=== PATIENT | female | born 1970 | race Caucasian/White ===

== ENCOUNTER 2016-10-12 13:50 | Inpatient (IN) | payer OTHER ==
[~2016-10-12] VITALS: Ht 170.2 cm; Wt 113.6 kg
[~2016-10-12 13:50] MED LIST: ACCUNEB1.25 MG/3 IH; ADVAIR 250/501 DISK IH; ADVAIR 500/501 DISK IH; ALBUTEROL17 GM IH; ALBUTEROL2.5 MG/3 M IH; ALLEGRA ALLERG180 MG PO; ALLERGY10 M1 PO; AMBIEN10 MG PO; AMBIEN5 MG PO; AMITIZA24 MICROGR PO; AMITRIPTYLINE H10 MG PO; AMITRIPTYLINE H25 MG PO; ATROVENT 0.03%30 ML BOTH NARES; ATROVENT 0.06%15 ML BOTH NARES; ATROVENT H200 INHALA IH; AUGMENTIN500 MG PO; AUGMENTIN875 MG PO; AZITHROMYCIN500 M1 PO; Amitiza PO; BEE WITH C1 EACH PO; BENZONATATE100 MG PO; BENZONATATE200 MG PO; BRINTELLIX10 MG PO; BRINTELLIX20 MG PO; BUSPAR7.5 MG PO; CAL-LAC100 MG PO; CALCIUM 500 MG1 EAC1 PO; CALCIUM 600 +1 EACH PO; CALCIUM CARBO1000 MG PO; CALCIUM CITRAT1 EA18 PO; CALCIUM CITRAT200 MG PO; CALCIUM CITRAT250 MG PO; CALCIUM PO; CARDIZEM CD360 MG PO; CEFTIN500 MG PO; CETIRIZINE HCL10 M1 PO; CETIRIZINE HCL10 M2 PO; CHERATUSSIN AC473 ML PO; CLONAZEPAM0.5 MG PO; CLONAZEPAM1 MG PO; CLONIDINE HCL0.1 MG PO; COD LIVER OIL1 EACH PO; COMBIVENT200 INHALA IH; COZAAR25 MG PO; COZAAR50 MG PO; CYMBALTA30 MG PO; DELTASONE20 M1 PO; DEXILANT60 MG PO; DOXYCYCLINE HY100 M1 PO; DUONEB 2.5-0.5 M3 ML AEROSOL; DUONEB 2.5-0.5 M3 ML IH; Diflucan PO; DuoNeb IH; ELAVIL10 MG PO; FIORICET 50-321 EACH PO; FLONASE16 G1 BOTH NARES; FLUTICASONE PRO16 GM BOTH NARES; FUROSEMIDE20 MG PO; FUROSEMIDE40 MG PO; Flonase BOTH NARES; GLIPIZIDE ER2.5 MG PO; GUAIFENESIN WI120 ML PO; HYCODAN SYRUP480 ML PO; IMITREX100 MG PO; IMITREX50 MG PO; INCRUSE ELLI62.5 MCG IH; INTUNIV1 MG PO; ISOPTO HOMATROPI5 ML OP; K-DUR10 MEQ PO; KLONOPIN0.5 M1 PO; KLONOPIN1 MG PO; KlonoPIN PO; LASIX40 MG PO; LEVALBUTER1.25 MG/3 IH; LOSARTAN POTASS50 MG PO; Lopressor PO; MEDROL DOSEPAK4 MG PO; METOPROLOL SUCC25 MG PO; METOPROLOL TART50 MG PO; MIRALAX255 GM PO; MOTRIN800 MG PO; NASONEX17 GM BOTH NARES; NEXIUM40 MG PO; NITROGLYCERIN0.4 MG SL; OMEPRAZOLE40 M1 PO; PHENERGAN12.5 M1 PO; PRED FORTE100 DROP/5 BOTH EYES; PREDNISONE10 M1 PO; PREDNISONE10 MG PO; PREDNISONE20 MG PO; PREDNISONE5 M2 PO; PRILOSEC20 MG PO; PRILOSEC40 MG PO; PROAIR HFA8.5 GM IH; PROTONIX40 MG PO; PROVENTIL HFA6.7 GM IH; PROVENTIL,2.5 MG/3 M IH; PROVENTIL,200 INHALA IH; PROVENTIL17 GM IH; Proventil,Ventolin H IH; REGLAN10 MG PO; ROBITUSSIN AC,T10 ML PO; Robitussin AC,Tussi- PO; SINGULAIR10 MG PO; SPIRIVA1 INHALATI IH; Singulair PO; Symbicort 160-4.5 mc IH; TAMIFLU75 MG PO; TESSALON200 MG PO; THEO-DUR,THEOC300 MG PO; THEOPHYLLINE400 MG PO; TOPAMAX25 MG PO; TOPAMAX50 MG PO; TOPROL XL50 MG PO; TRAMADOL HCL50 MG PO; TYLENOL WITH C1 EACH PO; Tessalon Perle PO; Topamax PO; ULTRAM50 MG PO; VENTOLIN HFA18 GM IH; VERAPAMIL SR240 MG PO; VITAMIN D32000 UNI1 PO; VITAMIN D35000 UNI1 PO; VITAMIN D35000 UNIT PO; VITAMIN D400 UNI2 PO; VITAMIN D5000 UNIT PO; VITAMIN E400 UNIT PO; Vitamin D PO; ZANTAC150 MG; ZANTAC150 MG PO; ZESTRIL,PRINIVIL5 MG PO; ZITHROMAX Z PACK PO; ZITHROMAX Z-PA250 MG PO; ZOLPIDEM TARTRA10 MG PO; ZYRTEC10 M2 PO; ZYRTEC10 M3 PO; ZYRTEC5 MG PO; [UNRECOGNIZED DRUG - REMARK]; predniSONE PO
[2016-10-12 15:27] LABS: HEMATOCRIT 41.5 % (36.0-46.0); MCH 29.4 PG (29.0-34.0); MCHC 33.3 G/DL (30.0-36.0); MCV 88.5 FL (83-99); MEAN PLAT.VOLUME 10.2 uM^3 (9.5-12.4); RBC DIS.WIDTH-CV 13.7 % (11.8-14.6); RBC DIS.WIDTH-SD 43.4 % (39-53); RED BLOOD COUNT 4.69 M/uL (3.80-5.20)
[2016-10-12 15:28] LABS: PLATELET COUNT 400 K/uL (156-360); WHITE BLOOD COUNT 29.7 K/uL (4.1-10.2)
[2016-10-12 15:35] LABS: CHLORIDE 110 mEq/L (99-109); SODIUM 141 mEq/L (136-147)
[2016-10-12 15:36] LABS: GLUCOSE 168 mg/dL (70-99)
[2016-10-12 15:38] LABS: ANION GAP 12 MEQ/L (2-14)
[2016-10-12 15:40] LABS: GFR ESTIMATE (CALCULATED) 57 mL/min/
[2016-10-12 15:41] LABS: UREA NITROGEN (BUN) 11 mg/dL (9-23)
[2016-10-12 16:02] LABS: INFLUENZA A VIRAL ANTIGEN NEGATIVE; INFLUENZA B VIRAL ANTIGEN NEGATIVE
[2016-10-12] MEDS ORDERED: DELTASONE20 M1 PO (17:15)
[2016-10-12 17:32] LABS: TROP-I INTERPRETATION NEGATIVE; TROPONIN-I < 0.01 ng/mL (0.0-0.30)
[2016-10-12] MEDS ORDERED: ADVAIR 500/501 DISK IH (17:33)
[2016-10-12] MEDS ORDERED: BELSOMRA20 MG PO (17:35)
[2016-10-12 20:24] VITALS: BP 130/75
[2016-10-13 00:34] VITALS: BP 143/64
[2016-10-13 04:07] VITALS: BP 123/98
[2016-10-13 06:42] LABS: HEMATOCRIT 38.4 % (36.0-46.0); MCHC 33.1 G/DL (30.0-36.0); MCV 90.8 FL (83-99); MEAN PLAT.VOLUME 10.9 uM^3 (9.5-12.4); PLATELET COUNT 355 K/uL (156-360); RBC DIS.WIDTH-CV 14.3 % (11.8-14.6); RBC DIS.WIDTH-SD 46.8 % (39-53); RED BLOOD COUNT 4.23 M/uL (3.80-5.20); WHITE BLOOD COUNT 23.8 K/uL (4.1-10.2)
[2016-10-13] MEDS ORDERED: SPIRIVA RESPIMAT4 GM IH (07:40)
[2016-10-13 08:05] LABS: ANION GAP 15 MEQ/L (2-14); CHLORIDE 106 MEQ/L (99-109); GFR ESTIMATE (CALCULATED) 57 mL/min/; GLUCOSE 136 mg/dL (70-99); POTASSIUM 4.2 MEQ/L (3.7-5.4); SAMPLE HEMOLYSIS CHECK 0; SAMPLE ICTERIC CHECK 0; SAMPLE LIPEMIA CHECK 0; SODIUM 142 MEQ/L (136-147); UREA NITROGEN (BUN) 15 mg/dL (9-23)
[2016-10-13 08:07] VITALS: BP 101/50
[2016-10-13 12:10] VITALS: BP 125/57
[2016-10-13] MEDS ORDERED: MEDROL DOSEPAK4 MG PO (14:57)
[2016-10-13] MEDS ORDERED: AZITHROMYCIN500 M1 PO (14:57)
[2016-10-13] MEDS ORDERED: 3-DAY VAGINAL C21 GM VG (15:16)
== END 2016-10-13 15:40 | disposition home or self-care (01) | DRG 203 ==
LOC: EME 13:50 → EDOF 16:26 → 5WEST 16:26 → EDOF 16:26 → 5WEST 20:08
PROVIDERS: Emergency Medicine; Internal Medicine
DX: J45.901 Unspecified asthma with (acute) exacerbation (principal); I10 Essential (primary) hypertension; F41.9 Anxiety disorder, unspecified; G89.4 Chronic pain syndrome; G40.909 Epilepsy, unspecified, not intractable, without status epilepticus; Z90.49 Acquired absence of other specified parts of digestive tract; D72.829 Elevated white blood cell count, unspecified; E66.9 Obesity, unspecified; Z68.39 Body mass index [BMI] 39.0-39.9, adult; F29 Unspecified psychosis not due to a substance or known physiological condition; R07.9 Chest pain, unspecified; R94.31 Abnormal electrocardiogram [ECG] [EKG]
CPT/HCPCS: 70360; 71020; 80048; 84484; 85027; 87081; 87502; 93005; 94640; 94640 76; 99202; 99281; 99285; G0378; J0171; J1100; J1200; J1650; J2930; J7030; J7644

== ENCOUNTER 2016-10-16 18:32 | Emergency (ER) | payer OTHER ==
[~2016-10-16] VITALS: Ht 170.2 cm; Wt 115.6 kg
[~2016-10-16 18:32] MED LIST changes: +3-DAY VAGINAL C21 GM VG; +BELSOMRA20 MG PO; +SPIRIVA RESPIMAT4 GM IH
[2016-10-16 19:31] LABS: CHLORIDE 106 mEq/L (99-109); SODIUM 141 mEq/L (136-147)
[2016-10-16 19:33] LABS: GLUCOSE 169 mg/dL (70-99)
[2016-10-16 19:34] LABS: ANION GAP 13 MEQ/L (2-14); HEMATOCRIT 40.9 % (36.0-46.0); MCH 30.1 PG (29.0-34.0); MCHC 33.7 G/DL (30.0-36.0); MCV 89.3 FL (83-99); PLATELET COUNT 250 K/uL (156-360); RBC DIS.WIDTH-CV 13.8 % (11.8-14.6); RBC DIS.WIDTH-SD 44.4 % (39-53); RED BLOOD COUNT 4.58 M/uL (3.80-5.20); WHITE BLOOD COUNT 13.2 K/uL (4.1-10.2)
[2016-10-16 19:37] LABS: GFR ESTIMATE (CALCULATED) 57 mL/min/; UREA NITROGEN (BUN) 19 mg/dL (9-23)
[2016-10-16 20:41] LABS: EOSINOPHIL (%) 0.2 % (0-5); IMMATURE GRANULOCYTE (%) 1.3 % (0.0-0.7); IMMATURE GRANULOCYTE COUNT 1.7 K/uL; LYMPHOCYTE COUNT 1.1 K/uL (1.0-2.8); MONOCYTE (%) 4.2 % (3-12); MONOCYTE COUNT 0.6 K/uL (0-0.8); NEUTROPHIL (%) 85.6 % (45-76); NEUTROPHIL COUNT 11.2 K/uL (1.8-6.4)
[2016-10-16 20:47] LABS: D-DIMER ELISA 1.35 mg/L FEU (< 0.57); TOTAL BILIRUBIN 0.7 mg/dL (0.0-1.0)
[2016-10-16 20:48] LABS: ALKALINE PHOSPHATASE 82 IU/L (3-129)
[2016-10-16 20:51] LABS: DIRECT BILIRUBIN 0.3 mg/dL (0.0-0.3)
[2016-10-16 22:25] VITALS: BP 120/73
== END 2016-10-16 22:27 | disposition home or self-care (01) ==
LOC: EME 18:32
DX: J45.909 Unspecified asthma, uncomplicated (principal); J06.9 Acute upper respiratory infection, unspecified; R42 Dizziness and giddiness; I10 Essential (primary) hypertension; I50.9 Heart failure, unspecified; G89.29 Other chronic pain; Z79.891 Long term (current) use of opiate analgesic
CPT/HCPCS: 71020; 71275; 80048; 80076; 83880; 85025; 85027; 85379; 99281; 99284; J1100; J1200

== ENCOUNTER 2016-10-22 02:56 | Inpatient (IN) | payer OTHER ==
[~2016-10-22] VITALS: Ht 170.2 cm; Wt 118.3 kg
[2016-10-22 03:35] LABS: BASE EXCESS 2.8 mEq/L (-3 to +3); BICARBONATE 21.5 mEq/L (22-26); CARBOXY HGB 0.6 % (0-5); METHEMOGLOBIN 0.8 % (0-1.5); PO2 528 mm Hg (80-100)
[2016-10-22 03:36] LABS: COMMENTS - BLOOD GASES A+C+; DEVICE 840; FI02 100 %; MODE SPONT; PCO2 20 mm Hg (35-45); PRES. SUPPORT 10 CM/H2O; SITE RR; TOTAL RESP RATE 23 resp/min; pH 7.64 (7.35-7.45)
[2016-10-22 03:37] LABS: PEEP 5 CM/H20
[2016-10-22 03:38] LABS: EOSINOPHIL (%) 0.9 % (0-5); EOSINOPHIL COUNT 0.2 K/uL (0-0.3); HEMATOCRIT 42.4 % (36.0-46.0); IMMATURE GRANULOCYTE (%) 1.2 % (0.0-0.7); IMMATURE GRANULOCYTE COUNT 2.3 K/uL; LYMPHOCYTE COUNT 5.3 K/uL (1.0-2.8); MCHC 34.4 G/DL (30.0-36.0); MCV 87.1 FL (83-99); MEAN PLAT.VOLUME 9.8 uM^3 (9.5-12.4); MONOCYTE (%) 6.6 % (3-12); MONOCYTE COUNT 1.2 K/uL (0-0.8); NEUTROPHIL (%) 62.8 % (45-76); NEUTROPHIL COUNT 11.8 K/uL (1.8-6.4); PLATELET COUNT 299 K/uL (156-360); RBC DIS.WIDTH-CV 13.8 % (11.8-14.6); RED BLOOD COUNT 4.87 M/uL (3.80-5.20); WHITE BLOOD COUNT 18.7 K/uL (4.1-10.2)
[2016-10-22 03:46] LABS: CHLORIDE 107 mEq/L (99-109); POTASSIUM 3.8 mEq/L (3.7-5.4); SODIUM 139 mEq/L (136-147)
[2016-10-22 03:47] LABS: GLUCOSE 154 mg/dL (70-99)
[2016-10-22 03:49] LABS: ANION GAP 13 MEQ/L (2-14)
[2016-10-22 03:51] LABS: GFR ESTIMATE (CALCULATED) 57 mL/min/
[2016-10-22 03:52] LABS: UREA NITROGEN (BUN) 19 mg/dL (9-23)
[2016-10-22 03:58] LABS: TROP-I INTERPRETATION NEGATIVE; TROPONIN-I < 0.01 ng/mL (0.0-0.30)
[2016-10-22 08:54] LABS: TROP-I INTERPRETATION NEGATIVE; TROPONIN-I < 0.01 ng/mL (0.0-0.30)
[2016-10-22] MEDS ORDERED: CALCIUM CITRAT1 EA18 PO (12:15)
[2016-10-22 17:29] LABS: TROP-I INTERPRETATION NEGATIVE; TROPONIN-I < 0.01 ng/mL (0.0-0.30)
[2016-10-22 21:17] VITALS: BP 135/68
[2016-10-22 21:25] VITALS: BP 135/68
[2016-10-22 23:17] VITALS: BP 134/76
[2016-10-23 04:30] VITALS: BP 123/59
[2016-10-23 07:44] VITALS: BP 120/74
[2016-10-23 09:23] LABS: HEMATOCRIT 38.8 % (36.0-46.0); MCH 29.2 PG (29.0-34.0); MCHC 32.5 G/DL (30.0-36.0); MCV 89.8 FL (83-99); PLATELET COUNT 268 K/uL (156-360); RBC DIS.WIDTH-CV 14.4 % (11.8-14.6); RBC DIS.WIDTH-SD 47.2 % (39-53); RED BLOOD COUNT 4.32 M/uL (3.80-5.20); WHITE BLOOD COUNT 18.6 K/uL (4.1-10.2)
[2016-10-23 12:00] VITALS: BP 135/66
[2016-10-23 15:40] VITALS: BP 115/78
[2016-10-23 19:47] VITALS: BP 146/65
[2016-10-23 23:40] VITALS: BP 112/56
[2016-10-24 03:57] VITALS: BP 111/59
[2016-10-24 09:00] VITALS: BP 142/65
[2016-10-24 16:20] VITALS: BP 125/95
[2016-10-24 20:19] VITALS: BP 140/68
[2016-10-24 23:23] VITALS: BP 126/78
[2016-10-25 03:30] VITALS: BP 116/59
[2016-10-25 07:17] VITALS: BP 146/79
[2016-10-25] MEDS ORDERED: PREDNISONE10 MG PO (07:54)
== END 2016-10-25 08:48 | disposition home or self-care (01) | DRG 189 ==
LOC: EME → EDBD 02:56 → EDOF 07:54 → 4EAST 07:54 → EDOF 07:54 → 4EAST 21:07
PROVIDERS: Emergency Medicine; Internal Medicine; Physician Assistant Medical
PROC: 5A09357 Assistance with Respiratory Ventilation, Less than 24 Consecutive Hours, Continuous Positive Airway Pressure (ICD-10-PCS; principal; 2016-10-22)
DX: J96.01 Acute respiratory failure with hypoxia (principal); J45.41 Moderate persistent asthma with (acute) exacerbation; K58.0 Irritable bowel syndrome with diarrhea; R07.81 Pleurodynia; J04.11 Acute tracheitis with obstruction; F41.9 Anxiety disorder, unspecified; F32.9 Major depressive disorder, single episode, unspecified; G43.909 Migraine, unspecified, not intractable, without status migrainosus; G89.4 Chronic pain syndrome; E66.9 Obesity, unspecified; Z68.39 Body mass index [BMI] 39.0-39.9, adult; Q34.1 Congenital cyst of mediastinum; J98.59 Other diseases of mediastinum, not elsewhere classified; I50.32 Chronic diastolic (congestive) heart failure; I11.0 Hypertensive heart disease with heart failure; J40 Bronchitis, not specified as acute or chronic
CPT/HCPCS: 36415; 36600; 71010; 80048; 81003; 82803; 83605; 83880; 84484; 85025; 85027; 85610; 85651; 85730; 86140; 87040; 93005; 94002; 94640; 94640 76; 94644; 94760; 94799; 99202; 99281; 99285; J0696; J1100; J1650; J2920; J2930; J3105; J3475; J7030; J7050; J7644

== ENCOUNTER 2016-11-03 11:52 | Emergency (ER) | payer OTHER ==
[~2016-11-03] VITALS: Ht 170.2 cm; Wt 121.4 kg
[2016-11-03 12:43] LABS: EOSINOPHIL (%) 0.6 % (0-5); EOSINOPHIL COUNT 0.1 K/uL (0-0.3); HEMATOCRIT 36.3 % (36.0-46.0); IMMATURE GRANULOCYTE (%) 1.5 % (0.0-0.7); IMMATURE GRANULOCYTE COUNT 2.4 K/uL; LYMPHOCYTE COUNT 4.5 K/uL (1.0-2.8); MCH 30.2 PG (29.0-34.0); MCHC 33.1 G/DL (30.0-36.0); MCV 91.2 FL (83-99); MEAN PLAT.VOLUME 9.5 uM^3 (9.5-12.4); MONOCYTE (%) 7.2 % (3-12); MONOCYTE COUNT 1.2 K/uL (0-0.8); NEUTROPHIL (%) 62.6 % (45-76); NEUTROPHIL COUNT 10.2 K/uL (1.8-6.4); PLATELET COUNT 249 K/uL (156-360); RBC DIS.WIDTH-CV 14.7 % (11.8-14.6); RBC DIS.WIDTH-SD 46.8 % (39-53); RED BLOOD COUNT 3.98 M/uL (3.80-5.20); WHITE BLOOD COUNT 16.2 K/uL (4.1-10.2)
[2016-11-03 12:54] LABS: CHLORIDE 108 mEq/L (99-109); POTASSIUM 3.9 mEq/L (3.7-5.4); SODIUM 143 mEq/L (136-147)
[2016-11-03 12:55] LABS: GLUCOSE 134 mg/dL (70-99)
[2016-11-03 12:57] LABS: ANION GAP 13 MEQ/L (2-14)
[2016-11-03 12:59] LABS: GFR ESTIMATE (CALCULATED) 57 mL/min/
[2016-11-03 13:00] LABS: UREA NITROGEN (BUN) 24 mg/dL (9-23)
[2016-11-03 13:02] LABS: CREATINE KINASE 43 IU/L (1-294)
[2016-11-03 13:06] LABS: TROP-I INTERPRETATION NEGATIVE; TROPONIN-I < 0.01 ng/mL (0.0-0.30)
[2016-11-03 14:20] VITALS: BP 136/75
== END 2016-11-03 14:21 | disposition home or self-care (01) ==
LOC: EME 11:52
PROVIDERS: Emergency Medicine
DX: J45.901 Unspecified asthma with (acute) exacerbation (principal); Z88.8 Allergy status to other drugs, medicaments and biological substances; Z91.041 Radiographic dye allergy status; Z88.1 Allergy status to other antibiotic agents; Z91.048 Other nonmedicinal substance allergy status; I50.9 Heart failure, unspecified; I10 Essential (primary) hypertension; R73.03 Prediabetes
CPT/HCPCS: 71010; 80048; 82550; 83880; 84484; 85025; 93005; 94644; 99281; 99284; J1100; J3105; J7644

== ENCOUNTER 2016-11-10 16:10 | Emergency (ER) | payer OTHER ==
[~2016-11-10] VITALS: Ht 170.2 cm; Wt 118.8 kg
[2016-11-10 16:46] LABS: HEMATOCRIT 36.6 % (36.0-46.0); MCHC 33.9 G/DL (30.0-36.0); MCV 88.6 FL (83-99); MEAN PLAT.VOLUME 9.7 uM^3 (9.5-12.4); PLATELET COUNT 282 K/uL (156-360); RBC DIS.WIDTH-CV 14.7 % (11.8-14.6); RBC DIS.WIDTH-SD 46.4 % (39-53); RED BLOOD COUNT 4.13 M/uL (3.80-5.20); WHITE BLOOD COUNT 17.9 K/uL (4.1-10.2)
[2016-11-10 16:55] LABS: CHLORIDE 106 mEq/L (99-109); POTASSIUM 3.2 mEq/L (3.7-5.4); SODIUM 139 mEq/L (136-147)
[2016-11-10 16:57] LABS: GLUCOSE 137 mg/dL (70-99)
[2016-11-10 16:58] LABS: ANION GAP 12 MEQ/L (2-14)
[2016-11-10 17:00] LABS: GFR ESTIMATE (CALCULATED) > 59 mL/min/
[2016-11-10 17:01] LABS: UREA NITROGEN (BUN) 18 mg/dL (9-23)
[2016-11-10 17:07] LABS: TROP-I INTERPRETATION NEGATIVE; TROPONIN-I < 0.01 ng/mL (0.0-0.30)
[2016-11-10 19:45] LABS: INFLUENZA A VIRAL ANTIGEN NEGATIVE; INFLUENZA B VIRAL ANTIGEN NEGATIVE
[2016-11-10 20:07] LABS: TROP-I INTERPRETATION NEGATIVE; TROPONIN-I < 0.01 ng/mL (0.0-0.30)
[2016-11-10] MEDS ORDERED: CHERATUSSIN AC473 ML PO (21:08)
[2016-11-10] MEDS ORDERED: PREDNISONE50 MG PO (21:08)
[2016-11-10 21:21] VITALS: BP 123/79
== END 2016-11-10 21:22 | disposition home or self-care (01) ==
LOC: EME 16:10
PROVIDERS: Physician Assistant
DX: R07.9 Chest pain, unspecified (principal); J45.901 Unspecified asthma with (acute) exacerbation; I11.0 Hypertensive heart disease with heart failure; I50.9 Heart failure, unspecified; G89.29 Other chronic pain; K21.9 Gastro-esophageal reflux disease without esophagitis; R56.9 Unspecified convulsions; R73.03 Prediabetes; Z87.442 Personal history of urinary calculi
CPT/HCPCS: 71020; 80048; 83880; 84484; 85027; 87502; 93005; 94640; 99281; 99284; J2930

== ENCOUNTER → 2016-12-10 | Outpatient (CLI) | payer OTHER ==
[~2016-12-10] MED LIST changes: +OMEPRAZOLE20 M2 PO; +PREDNISONE50 MG PO; +VERAPAMIL HCL120 MG PO; +VITAMIN D2000 UNI1 PO
== END | disposition home or self-care (01) ==
LOC: OPR 12-07 09:00 → EDSTATUS 09:00
PROVIDERS: Radiology Diagnostic Radiology
PROC: 0B9 Respiratory System, Drainage (ICD-10-PCS; principal; 2016-12-10)
DX: J98.4 Other disorders of lung (principal)
CPT/HCPCS: 77012; 85610; 85730; 88160; J3010

== ENCOUNTER 2017-03-10 09:01 | Emergency (ER) | payer OTHER ==
[~2017-03-10] VITALS: Ht 170.2 cm; Wt 97.8 kg
[2017-03-10 09:10] VITALS: BP 136/89
== END 2017-03-10 13:19 | disposition home or self-care (01) ==
LOC: EME 09:01
DX: M25.562 Pain in left knee (principal); M17.0 Bilateral primary osteoarthritis of knee; I10 Essential (primary) hypertension; J45.909 Unspecified asthma, uncomplicated
CPT/HCPCS: 73564; 99281; 99283

== ENCOUNTER 2017-04-14 | Emergency (ER) | payer OTHER ==
[~2017-04-14] VITALS: Ht 170.2 cm; Wt 115.0 kg
[2017-04-14 00:09] VITALS: BP 138/90
[2017-04-14 00:31] LABS: HEMATOCRIT 43.2 % (36.0-46.0); MCH 29.3 PG (29.0-34.0); MCHC 33.3 G/DL (30.0-36.0); MCV 87.8 FL (83-99); MEAN PLAT.VOLUME 10.2 uM^3 (9.5-12.4); PLATELET COUNT 341 K/uL (156-360); RBC DIS.WIDTH-CV 13.7 % (11.8-14.6); RBC DIS.WIDTH-SD 43.8 % (39-53); RED BLOOD COUNT 4.92 M/uL (3.80-5.20)
[2017-04-14 00:48] LABS: CHLORIDE 107 mEq/L (99-109); POTASSIUM 3.5 mEq/L (3.7-5.4); SODIUM 139 mEq/L (136-147)
[2017-04-14 00:50] LABS: GLUCOSE 156 mg/dL (70-99)
[2017-04-14 00:51] LABS: ANION GAP 11 MEQ/L (2-14)
[2017-04-14 00:53] LABS: GFR ESTIMATE (CALCULATED) > 59 mL/min/
[2017-04-14 00:54] LABS: UREA NITROGEN (BUN) 13 mg/dL (9-23)
[2017-04-15] MEDS ORDERED: NITROSTAT0.4 MG SL (04:40)
[2017-04-15] MEDS ORDERED: ADVAIR 500/501 DISK IH (04:40)
[2017-04-15] MEDS ORDERED: LASIX20 MG PO ×2 (04:40→13:27)
[2017-04-15] MEDS ORDERED: INCRUSE ELLI62.5 MCG IH (04:40)
[2017-04-15] MEDS ORDERED: SINGULAIR10 MG PO (04:41)
[2017-04-15] MEDS ORDERED: 24HOUR ALLERGY10 MG PO (04:41)
[2017-04-15] MEDS ORDERED: VENTOLIN HFA18 GM IH (04:42)
[2017-04-15] MEDS ORDERED: ATROVENT 00.5 MG/2.5 IH ×2 (04:43)
[2017-04-15] MEDS ORDERED: PROTONIX40 MG PO (04:45)
[2017-04-15] MEDS ORDERED: PRILOSEC20 MG PO (04:45)
[2017-04-15] MEDS ORDERED: TESSALON200 MG PO (04:46)
[2017-04-15] MEDS ORDERED: BELSOMRA15 MG PO (04:46)
[2017-04-15] MEDS ORDERED: MIRALAX17 GM PO (04:46)
[2017-04-15] MEDS ORDERED: ULTRAM50 MG PO (04:46)
[2017-04-15] MEDS ORDERED: BRINTELLIX20 MG PO (04:46)
[2017-04-15] MEDS ORDERED: KLONOPIN1 MG PO (04:46)
[2017-04-15] MEDS ORDERED: LOPRESSOR25 MG PO ×2 (04:48)
[2017-04-15] MEDS ORDERED: DICLOFENAC SOD100 G1 TP (04:48)
[2017-04-15] MEDS ORDERED: DUONEB 2.5-0.5 M3 ML AEROSOL (13:30)
[2017-04-15] MEDS ORDERED: CALCIUM PO (13:32)
[2017-04-15] MEDS ORDERED: VITAMIN D2000 UNI1 PO (13:33)
== END 2017-04-14 04:25 | disposition left against medical advice (07) ==
LOC: EME
DX: R06.02 Shortness of breath (principal); Z53.21 Procedure and treatment not carried out due to patient leaving prior to being seen by health care provider
CPT/HCPCS: 71020; 80048; 85027; 93005

== ENCOUNTER 2017-04-14 20:13 | Inpatient (IN) | payer OTHER ==
[~2017-04-14] VITALS: Ht 170.2 cm; Wt 114.4 kg
[2017-04-14 21:47] LABS: HEMATOCRIT 42.8 % (36.0-46.0); MCH 29.4 PG (29.0-34.0); MCHC 33.2 G/DL (30.0-36.0); MCV 88.6 FL (83-99); MEAN PLAT.VOLUME 10.3 uM^3 (9.5-12.4); PLATELET COUNT 342 K/uL (156-360); RBC DIS.WIDTH-CV 13.6 % (11.8-14.6); RBC DIS.WIDTH-SD 44.2 % (39-53); RED BLOOD COUNT 4.83 M/uL (3.80-5.20); WHITE BLOOD COUNT 15.3 K/uL (4.1-10.2)
[2017-04-14 21:58] LABS: CHLORIDE 107 mEq/L (99-109); SODIUM 138 mEq/L (136-147)
[2017-04-14 22:01] LABS: ANION GAP 15 MEQ/L (2-14)
[2017-04-14 22:02] LABS: GLUCOSE 266 mg/dL (70-99); POTASSIUM 4.5 mEq/L (3.7-5.4)
[2017-04-14 22:04] LABS: GFR ESTIMATE (CALCULATED) > 59 mL/min/
[2017-04-14 22:05] LABS: UREA NITROGEN (BUN) 12 mg/dL (9-23)
[2017-04-14 22:11] LABS: TROP-I INTERPRETATION NEGATIVE; TROPONIN-I < 0.01 ng/mL (0.0-0.30)
[2017-04-15 00:50] LABS: TROP-I INTERPRETATION NEGATIVE; TROPONIN-I < 0.01 ng/mL (0.0-0.30)
[2017-04-15] MEDS ORDERED: NITROSTAT0.4 MG SL (04:40)
[2017-04-15] MEDS ORDERED: INCRUSE ELLI62.5 MCG IH (04:40)
[2017-04-15] MEDS ORDERED: ADVAIR 500/501 DISK IH (04:40)
[2017-04-15] MEDS ORDERED: LASIX20 MG PO ×2 (04:40→13:27)
[2017-04-15] MEDS ORDERED: SINGULAIR10 MG PO (04:41)
[2017-04-15] MEDS ORDERED: 24HOUR ALLERGY10 MG PO (04:41)
[2017-04-15] MEDS ORDERED: VENTOLIN HFA18 GM IH (04:42)
[2017-04-15] MEDS ORDERED: ATROVENT 00.5 MG/2.5 IH ×2 (04:43)
[2017-04-15] MEDS ORDERED: PROTONIX40 MG PO (04:45)
[2017-04-15] MEDS ORDERED: PRILOSEC20 MG PO (04:45)
[2017-04-15] MEDS ORDERED: BRINTELLIX20 MG PO (04:46)
[2017-04-15] MEDS ORDERED: KLONOPIN1 MG PO (04:46)
[2017-04-15] MEDS ORDERED: TESSALON200 MG PO (04:46)
[2017-04-15] MEDS ORDERED: BELSOMRA15 MG PO (04:46)
[2017-04-15] MEDS ORDERED: ULTRAM50 MG PO (04:46)
[2017-04-15] MEDS ORDERED: MIRALAX17 GM PO (04:46)
[2017-04-15] MEDS ORDERED: LOPRESSOR25 MG PO ×2 (04:48)
[2017-04-15] MEDS ORDERED: DICLOFENAC SOD100 G1 TP (04:48)
[2017-04-15 05:36] VITALS: BP 122/71
[2017-04-15 05:37] LABS: CHLORIDE 108 mEq/L (99-109); POTASSIUM 4.2 mEq/L (3.7-5.4); SODIUM 139 mEq/L (136-147)
[2017-04-15 05:38] LABS: GLUCOSE 193 mg/dL (70-99)
[2017-04-15 05:40] LABS: ANION GAP 14 MEQ/L (2-14)
[2017-04-15 05:42] LABS: GFR ESTIMATE (CALCULATED) > 59 mL/min/
[2017-04-15 05:43] LABS: UREA NITROGEN (BUN) 12 mg/dL (9-23)
[2017-04-15 08:01] VITALS: BP 136/65
[2017-04-15 08:54] LABS: EOSINOPHIL (%) 0 % (0-5); HEMATOCRIT 40.9 % (36.0-46.0); IMMATURE GRANULOCYTE (%) 0.9 % (0.0-0.7); IMMATURE GRANULOCYTE COUNT 0.2 K/uL; INSTRUMENT ABS NEUTROPHIL CT 22.4 K/uL; LYMPHOCYTE COUNT 1.1 K/uL (1.0-2.8); MCH 29.6 PG (29.0-34.0); MCV 89.7 FL (83-99); MEAN PLAT.VOLUME 10.3 uM^3 (9.5-12.4); MONOCYTE COUNT 0.3 K/uL (0-0.8); NEUTROPHIL (%) 93.3 % (45-76); NEUTROPHIL COUNT 22.4 K/uL (1.8-6.4); PLATELET COUNT 336 K/uL (156-360); RBC DIS.WIDTH-SD 46.4 % (39-53); RED BLOOD COUNT 4.56 M/uL (3.80-5.20)
[2017-04-15 10:57] LABS: ADD MIUA? NO; BILIRUBIN NEGATIVE; BLOOD NEGATIVE; COLOR STRAW ((YELLOW)); GLUCOSE (STRIP) 150; KETONES NEGATIVE; LEUKOCYTES NEGATIVE; NITRITE NEGATIVE; PROTEIN (STRIP) NEGATIVE; SPECIFIC GRAVITY 1.012 (1.000-1.030); UCUL ADDED? NO; UROBILINOGEN 0.2 MG/DL (0.2-1.0)
[2017-04-15 11:45] VITALS: BP 136/68
[2017-04-15] MEDS ORDERED: DUONEB 2.5-0.5 M3 ML AEROSOL (13:30)
[2017-04-15] MEDS ORDERED: CALCIUM PO (13:32)
[2017-04-15] MEDS ORDERED: VITAMIN D2000 UNI1 PO (13:33)
[2017-04-15 15:28] VITALS: BP 118/69
[2017-04-15 19:21] VITALS: BP 129/64
[2017-04-16 01:38] VITALS: BP 142/72
[2017-04-16 03:02] VITALS: BP 127/80
[2017-04-16 07:20] VITALS: BP 132/61
[2017-04-16 07:58] LABS: ANION GAP 8 MEQ/L (2-14); CHLORIDE 110 MEQ/L (99-109); GFR ESTIMATE (CALCULATED) > 59 mL/min/; GLUCOSE 129 mg/dL (70-99); MAGNESIUM 1.9 mg/dl (1.3-2.7); SAMPLE HEMOLYSIS CHECK 0; SAMPLE ICTERIC CHECK 0; SAMPLE LIPEMIA CHECK 0; SODIUM 142 MEQ/L (136-147); UREA NITROGEN (BUN) 14 mg/dL (9-23)
[2017-04-16 07:59] LABS: BASOPHIL COUNT 0.1 K/uL (0-0.1); EOSINOPHIL (%) 0 % (0-5); HEMATOCRIT 37.5 % (36.0-46.0); IMMATURE GRANULOCYTE (%) 1.6 % (0.0-0.7); IMMATURE GRANULOCYTE COUNT 0.4 K/uL; INSTRUMENT ABS NEUTROPHIL CT 23.8 K/uL; LYMPHOCYTE COUNT 1.4 K/uL (1.0-2.8); MCH 29.2 PG (29.0-34.0); MCV 91.2 FL (83-99); MEAN PLAT.VOLUME 10.7 uM^3 (9.5-12.4); MONOCYTE (%) 3.6 % (3-12); NEUTROPHIL (%) 89.3 % (45-76); NEUTROPHIL COUNT 23.8 K/uL (1.8-6.4); PLATELET COUNT 313 K/uL (156-360); RBC DIS.WIDTH-CV 14.5 % (11.8-14.6); RBC DIS.WIDTH-SD 48.1 % (39-53); RED BLOOD COUNT 4.11 M/uL (3.80-5.20); WHITE BLOOD COUNT 26.7 K/uL (4.1-10.2)
[2017-04-16 08:01] LABS: POTASSIUM 5.2 MEQ/L (3.7-5.4)
[2017-04-16 10:52] LABS: INFLUENZA A VIRAL ANTIGEN NEGATIVE; INFLUENZA B VIRAL ANTIGEN NEGATIVE
[2017-04-16 12:05] VITALS: BP 131/67
[2017-04-16 15:18] VITALS: BP 126/71
[2017-04-16 21:07] VITALS: BP 112/60
[2017-04-17 00:51] VITALS: BP 115/57
[2017-04-17 04:34] VITALS: BP 142/73
[2017-04-17 07:37] LABS: EOSINOPHIL (%) 0 % (0-5); HEMATOCRIT 35.2 % (36.0-46.0); IMMATURE GRANULOCYTE (%) 2.2 % (0.0-0.7); IMMATURE GRANULOCYTE COUNT 0.4 K/uL; INSTRUMENT ABS NEUTROPHIL CT 15.1 K/uL; LYMPHOCYTE COUNT 1.5 K/uL (1.0-2.8); MCH 29.4 PG (29.0-34.0); MCHC 32.1 G/DL (30.0-36.0); MCV 91.7 FL (83-99); MEAN PLAT.VOLUME 10.6 uM^3 (9.5-12.4); MONOCYTE (%) 5.3 % (3-12); NEUTROPHIL (%) 84.1 % (45-76); NEUTROPHIL COUNT 15.1 K/uL (1.8-6.4); PLATELET COUNT 272 K/uL (156-360); RBC DIS.WIDTH-CV 14.6 % (11.8-14.6); RED BLOOD COUNT 3.84 M/uL (3.80-5.20)
[2017-04-17 07:40] VITALS: BP 134/77
[2017-04-17 08:03] LABS: ANION GAP 9 MEQ/L (2-14); CHLORIDE 110 MEQ/L (99-109); GFR ESTIMATE (CALCULATED) > 59 mL/min/; GLUCOSE 148 mg/dL (70-99); MAGNESIUM 1.8 mg/dl (1.3-2.7); POTASSIUM 4.4 MEQ/L (3.7-5.4); SAMPLE HEMOLYSIS CHECK 0; SAMPLE ICTERIC CHECK 0; SAMPLE LIPEMIA CHECK 0; SODIUM 142 MEQ/L (136-147); UREA NITROGEN (BUN) 14 mg/dL (9-23)
[2017-04-17 12:07] VITALS: BP 164/88
[2017-04-17 15:39] VITALS: BP 146/75
[2017-04-17 23:01] VITALS: BP 155/73
[2017-04-18 06:38] LABS: EOSINOPHIL (%) 0 % (0-5); HEMATOCRIT 35.9 % (36.0-46.0); IMMATURE GRANULOCYTE (%) 2.6 % (0.0-0.7); IMMATURE GRANULOCYTE COUNT 0.4 K/uL; INSTRUMENT ABS NEUTROPHIL CT 10.1 K/uL; LYMPHOCYTE COUNT 1.7 K/uL (1.0-2.8); MCH 30.2 PG (29.0-34.0); MCHC 33.4 G/DL (30.0-36.0); MCV 90.4 FL (83-99); MEAN PLAT.VOLUME 10.8 uM^3 (9.5-12.4); MONOCYTE (%) 8.2 % (3-12); MONOCYTE COUNT 1.1 K/uL (0-0.8); NEUTROPHIL (%) 76.3 % (45-76); NEUTROPHIL COUNT 10.1 K/uL (1.8-6.4); PLATELET COUNT 261 K/uL (156-360); RBC DIS.WIDTH-CV 14.5 % (11.8-14.6); RBC DIS.WIDTH-SD 47.8 % (39-53); RED BLOOD COUNT 3.97 M/uL (3.80-5.20); WHITE BLOOD COUNT 13.2 K/uL (4.1-10.2)
[2017-04-18 07:07] LABS: ANION GAP 12 MEQ/L (2-14); CHLORIDE 107 MEQ/L (99-109); GFR ESTIMATE (CALCULATED) > 59 mL/min/; GLUCOSE 132 mg/dL (70-99); POTASSIUM 4.7 MEQ/L (3.7-5.4); SAMPLE HEMOLYSIS CHECK 0; SAMPLE ICTERIC CHECK 0; SAMPLE LIPEMIA CHECK 0; SODIUM 143 MEQ/L (136-147); UREA NITROGEN (BUN) 12 mg/dL (9-23)
[2017-04-18 07:58] VITALS: BP 121/57
[2017-04-18 11:30] VITALS: BP 138/80
[2017-04-18] MEDS ORDERED: PREDNISONE10 MG PO (11:38)
[2017-04-18 12:27] LABS: ALKALINE PHOSPHATASE 70 IU/L (3-129); DIRECT BILIRUBIN 0.1 mg/dL (0.0-0.3)
[2017-04-18 12:28] LABS: TOTAL BILIRUBIN 0.5 MG/DL (0.0-1.0)
[2017-04-18 14:27] LABS: Estimated Average Glucose 108 mg/dL (70-123); HEMOGLOBIN A1c (GLYCOHEMOGLOB) 5.4 % HGB (Below 5.7)
[2017-04-20 15:38] LABS: TOXOPLASMA IgM (ACUTE ONLY)+ <8.00 AU/mL (<8.00)
== END 2017-04-18 17:35 | disposition home or self-care (01) | DRG 202 ==
LOC: EME 20:13 → 2EASTP 04-15 04:02 → EDOF 04-15 04:02 → 2EASTP 04-15 05:25
PROVIDERS: Hospitalist; Internal Medicine; Physician Assistant Medical
DX: J45.41 Moderate persistent asthma with (acute) exacerbation (principal); E87.2 Acidosis; T38.0X5A Adverse effect of glucocorticoids and synthetic analogues, initial encounter; I50.9 Heart failure, unspecified; E87.5 Hyperkalemia; I11.0 Hypertensive heart disease with heart failure; R65.10 Systemic inflammatory response syndrome (SIRS) of non-infectious origin without acute organ dysfunction; Q34.1 Congenital cyst of mediastinum; R09.02 Hypoxemia; J98.11 Atelectasis; G89.4 Chronic pain syndrome; E66.9 Obesity, unspecified; K21.9 Gastro-esophageal reflux disease without esophagitis; K58.9 Irritable bowel syndrome, unspecified; H54.41 Blindness, right eye, normal vision left eye; J38.3 Other diseases of vocal cords; N95.1 Menopausal and female climacteric states; Z90.49 Acquired absence of other specified parts of digestive tract; Z79.899 Other long term (current) drug therapy; Z87.442 Personal history of urinary calculi
CPT/HCPCS: 36415; 71010; 71020; 71275; 74176; 80048; 80048 91; 80053; 80076; 81003; 83036; 83605; 83735; 83880; 84484; 85025; 85027; 85379; 86611 90; 86778 90; 87040; 87502; 87651 90; 93005; 94640; 94640 76; 94760; 99202; 99281; 99285; J0456; J0696; J1200; J1644; J2405; J2920; J2930; J3475; J7030; J7050; S0028

== ENCOUNTER 2017-07-06 03:57 | Inpatient (IN) | payer OTHER ==
[2017-07-06] VITALS (9 sets, daily range): BP systolic 109–168; BP diastolic 55–100
[~2017-07-06] VITALS: Ht 170.2 cm; Wt 119.0 kg
[~2017-07-06 03:57] MED LIST changes: +24HOUR ALLERGY10 MG PO; +ATROVENT 00.5 MG/2.5 IH; +BELSOMRA15 MG PO; +DICLOFENAC SOD100 G1 TP; +LASIX20 MG PO; +LOPRESSOR25 MG PO; +MIRALAX17 GM PO; +NITROSTAT0.4 MG SL
[2017-07-06 05:28] LABS: CHLORIDE 108 mEq/L (99-109); POTASSIUM 3.4 mEq/L (3.7-5.4); SODIUM 141 mEq/L (136-147)
[2017-07-06 05:30] LABS: GLUCOSE 118 mg/dL (70-99)
[2017-07-06 05:32] LABS: ANION GAP 9 MEQ/L (2-14)
[2017-07-06 05:34] LABS: GFR ESTIMATE (CALCULATED) > 59 mL/min/
[2017-07-06 05:35] LABS: UREA NITROGEN (BUN) 10 mg/dL (9-23)
[2017-07-06 05:36] LABS: TROP-I INTERPRETATION NEGATIVE; TROPONIN-I < 0.01 ng/mL (0.0-0.30)
[2017-07-06 05:37] LABS: EOSINOPHIL (%) 1.4 % (0-5); EOSINOPHIL COUNT 0.2 K/uL (0-0.3); HEMATOCRIT 39.3 % (36.0-46.0); IMMATURE GRANULOCYTE (%) 0.5 % (0.0-0.7); IMMATURE GRANULOCYTE COUNT 0.1 K/uL; INSTRUMENT ABS NEUTROPHIL CT 6.2 K/uL; LYMPHOCYTE COUNT 4.4 K/uL (1.0-2.8); MCH 29.3 PG (29.0-34.0); MCHC 32.8 G/DL (30.0-36.0); MCV 89.1 FL (83-99); MEAN PLAT.VOLUME 10.5 uM^3 (9.5-12.4); MONOCYTE (%) 7.4 % (3-12); MONOCYTE COUNT 0.9 K/uL (0-0.8); NEUTROPHIL (%) 52.7 % (45-76); NEUTROPHIL COUNT 6.2 K/uL (1.8-6.4); PLATELET COUNT 311 K/uL (156-360); RBC DIS.WIDTH-CV 13.7 % (11.8-14.6); RBC DIS.WIDTH-SD 44.5 % (39-53); RED BLOOD COUNT 4.41 M/uL (3.80-5.20); WHITE BLOOD COUNT 11.7 K/uL (4.1-10.2)
[2017-07-06 12:52] LABS: TROP-I INTERPRETATION NEGATIVE; TROPONIN-I < 0.01 ng/mL (0.0-0.30)
[2017-07-06] MEDS ORDERED: QVAR 80 MCG IN7.3 GM IH (13:10)
[2017-07-06] MEDS ORDERED: OMEPRAZOLE40 M1 PO (13:12)
[2017-07-06] MEDS ORDERED: LO-DOSE ASPIRIN81 M1 PO (13:16)
[2017-07-06] MEDS ORDERED: THEOPHYLLINE400 MG PO (13:19)
[2017-07-06] MEDS ORDERED: ADVIL200 MG PO (13:20)
[2017-07-06] MEDS ORDERED: PERCOCET 5/31 TABLET PO (13:20)
[2017-07-06] MEDS ORDERED: FLONASE16 G1 BOTH NARES (13:20)
[2017-07-06 17:34] LABS: TROP-I INTERPRETATION NEGATIVE; TROPONIN-I < 0.01 ng/mL (0.0-0.30)
[2017-07-06 18:49] LABS: BICARBONATE 14.9 mEq/L (22-26); CARBOXY HGB 2.1 % (0-5); COMMENTS - BLOOD GASES +C; DEVICE NC; METHEMOGLOBIN 1.7 % (0-1.5); O2 FLOW 5 L/MIN; PCO2 27 mm Hg (35-45); PO2 108 mm Hg (80-100); SITE LR +A; TOTAL RESP RATE 24 resp/min; pH 7.35 (7.35-7.45)
[2017-07-06 20:34] LABS: METH RESISTANT S AUREUS PCR NEGATIVE (NEGATIVE)
[2017-07-06 20:42] LABS: PROBE CHECK PASS; SPECIMEN PROCESSING CONTROL PASS
[2017-07-07] VITALS (17 sets, daily range): BP systolic 120–154; BP diastolic 61–89
[2017-07-07 10:16] LABS: EOSINOPHIL (%) 0 % (0-5); HEMATOCRIT 39.7 % (36.0-46.0); IMMATURE GRANULOCYTE (%) 0.7 % (0.0-0.7); IMMATURE GRANULOCYTE COUNT 0.2 K/uL; INSTRUMENT ABS NEUTROPHIL CT 21.1 K/uL; LYMPHOCYTE COUNT 1.4 K/uL (1.0-2.8); MCH 30.2 PG (29.0-34.0); MCHC 32.7 G/DL (30.0-36.0); MCV 92.3 FL (83-99); MEAN PLAT.VOLUME 10.3 uM^3 (9.5-12.4); MONOCYTE (%) 1.8 % (3-12); MONOCYTE COUNT 0.4 K/uL (0-0.8); NEUTROPHIL (%) 91.2 % (45-76); NEUTROPHIL COUNT 21.1 K/uL (1.8-6.4); PLATELET COUNT 342 K/uL (156-360); RBC DIS.WIDTH-CV 14.6 % (11.8-14.6); RBC DIS.WIDTH-SD 48.8 % (39-53); WHITE BLOOD COUNT 23.1 K/uL (4.1-10.2)
[2017-07-07 10:43] LABS: ANION GAP 11 MEQ/L (2-14); CHLORIDE 110 MEQ/L (99-109); GFR ESTIMATE (CALCULATED) > 59 mL/min/; SAMPLE HEMOLYSIS CHECK 0; SAMPLE ICTERIC CHECK 0; SAMPLE LIPEMIA CHECK 0; SODIUM 140 MEQ/L (136-147); UREA NITROGEN (BUN) 10 mg/dL (9-23)
[2017-07-07 10:45] LABS: GLUCOSE 272 mg/dL (70-99); POTASSIUM 4.7 MEQ/L (3.7-5.4)
[2017-07-07 13:14] LABS: POINT-OF-CARE METER ID UU13113748
[2017-07-07 17:53] LABS: POINT-OF-CARE METER ID UU13113717
[2017-07-07 21:09] LABS: POINT-OF-CARE METER ID UU13113717; POINT-OF-CARE USER ID 603211116
[2017-07-08 00:19] VITALS: BP 121/83
[2017-07-08 07:38] LABS: POINT-OF-CARE METER ID UU14188625
[2017-07-08 07:51] VITALS: BP 122/73
[2017-07-08] MEDS ORDERED: PREDNISONE10 MG PO (08:04)
[2017-07-08 08:40] LABS: Estimated Average Glucose 114 mg/dL (70-123); HEMOGLOBIN A1c (GLYCOHEMOGLOB) 5.6 % HGB (Below 5.7)
== END 2017-07-08 11:08 | disposition home or self-care (01) | DRG 202 ==
LOC: EME → EDBD 03:57 → EME 03:57 → EDOF 07:36 → ENRESERV 07:37 → 5WEST 08:49 → 4WEST 11:45 → ENRESERV 11:51 → CANRESERV 13:05 → ENRESERV 13:05 → 5WEST 18:53 → 4WEST 18:56 → ENRESERV 18:57 → 5WEST 19:11 → 4WEST 07-07 12:32 → ENRESERV 07-07 12:34 → 5SOUTH 07-07 16:16
PROVIDERS: Emergency Medicine; Hospitalist; Internal Medicine; Internal Medicine Critical Care Medicine
DX: J45.41 Moderate persistent asthma with (acute) exacerbation (principal); J98.11 Atelectasis; Z68.41 Body mass index [BMI] 40.0-44.9, adult; E87.6 Hypokalemia; G40.909 Epilepsy, unspecified, not intractable, without status epilepticus; G89.4 Chronic pain syndrome; H54.61 Unqualified visual loss, right eye, normal vision left eye; I11.0 Hypertensive heart disease with heart failure; I50.9 Heart failure, unspecified; K21.9 Gastro-esophageal reflux disease without esophagitis; J45.42 Moderate persistent asthma with status asthmaticus; D72.829 Elevated white blood cell count, unspecified; M19.90 Unspecified osteoarthritis, unspecified site; M12.9 Arthropathy, unspecified; E66.9 Obesity, unspecified; Z87.442 Personal history of urinary calculi; Z91.041 Radiographic dye allergy status
CPT/HCPCS: 36600; 71010; 80048; 80198; 82803; 82948; 83036; 84484; 85025; 87502; 87641; 93005; 93971; 94002; 94640; 94640 76; 99202; 99281; 99285; J1100; J1650; J1815; J2930; J3475; J7644

== ENCOUNTER 2017-07-10 15:12 | Emergency (ER) | payer OTHER ==
[~2017-07-10] VITALS: Ht 170.2 cm; Wt 119.7 kg
[~2017-07-10 15:12] MED LIST changes: +ADVIL200 MG PO; +LO-DOSE ASPIRIN81 M1 PO; +PERCOCET 5/31 TABLET PO; +QVAR 80 MCG IN7.3 GM IH
[2017-07-10 17:09] LABS: HEMATOCRIT 42.8 % (36.0-46.0); MCH 29.5 PG (29.0-34.0); MCHC 32.9 G/DL (30.0-36.0); MCV 89.5 FL (83-99); MEAN PLAT.VOLUME 10.2 uM^3 (9.5-12.4); PLATELET COUNT 293 K/uL (156-360); RBC DIS.WIDTH-CV 13.8 % (11.8-14.6); RBC DIS.WIDTH-SD 45.7 % (39-53); RED BLOOD COUNT 4.78 M/uL (3.80-5.20); WHITE BLOOD COUNT 14.6 K/uL (4.1-10.2)
[2017-07-10 17:19] LABS: CHLORIDE 101 mEq/L (99-109); POTASSIUM 3.8 mEq/L (3.7-5.4)
[2017-07-10 17:20] LABS: SODIUM 139 mEq/L (136-147)
[2017-07-10 17:21] LABS: GLUCOSE 130 mg/dL (70-99)
[2017-07-10 17:23] LABS: ANION GAP 13 MEQ/L (2-14)
[2017-07-10 17:25] LABS: GFR ESTIMATE (CALCULATED) > 59 mL/min/
[2017-07-10 17:30] LABS: TROP-I INTERPRETATION NEGATIVE; TROPONIN-I < 0.01 ng/mL (0.0-0.30)
[2017-07-10 17:31] LABS: UREA NITROGEN (BUN) 22 mg/dL (9-23)
[2017-07-10 17:33] LABS: QUANTITATIVE HCG < 4.0 MIU/ML
[2017-07-10 20:01] LABS: TROP-I INTERPRETATION NEGATIVE; TROPONIN-I < 0.01 ng/mL (0.0-0.30)
[2017-07-10 21:00] VITALS: BP 131/97
== END 2017-07-10 21:01 | disposition home or self-care (01) ==
LOC: EME 15:12
PROVIDERS: Physician Assistant Medical
DX: E86.0 Dehydration (principal); I11.0 Hypertensive heart disease with heart failure; I50.9 Heart failure, unspecified; K21.9 Gastro-esophageal reflux disease without esophagitis; J45.909 Unspecified asthma, uncomplicated; R73.03 Prediabetes; F41.9 Anxiety disorder, unspecified; R56.9 Unspecified convulsions; Z87.442 Personal history of urinary calculi; H54.61 Unqualified visual loss, right eye, normal vision left eye; Z79.82 Long term (current) use of aspirin; Z88.8 Allergy status to other drugs, medicaments and biological substances
CPT/HCPCS: 80048; 84484; 84702; 85027; 93005; 99281; 99285; J7030

== ENCOUNTER 2017-08-08 22:37 | Emergency (ER) | payer OTHER ==
[~2017-08-08] VITALS: Ht 170.2 cm; Wt 115.5 kg
[2017-08-08 23:40] LABS: EOSINOPHIL (%) 0.9 % (0-5); EOSINOPHIL COUNT 0.1 K/uL (0-0.3); HEMATOCRIT 40.4 % (36.0-46.0); IMMATURE GRANULOCYTE (%) 0.6 % (0.0-0.7); IMMATURE GRANULOCYTE COUNT 0.1 K/uL; INSTRUMENT ABS NEUTROPHIL CT 9.8 K/uL; LYMPHOCYTE COUNT 4.9 K/uL (1.0-2.8); MCH 29.3 PG (29.0-34.0); MCHC 33.7 G/DL (30.0-36.0); MCV 87.1 FL (83-99); MEAN PLAT.VOLUME 10.2 uM^3 (9.5-12.4); MONOCYTE COUNT 1.1 K/uL (0-0.8); NEUTROPHIL (%) 60.7 % (45-76); NEUTROPHIL COUNT 9.8 K/uL (1.8-6.4); PLATELET COUNT 319 K/uL (156-360); RBC DIS.WIDTH-CV 13.2 % (11.8-14.6); RBC DIS.WIDTH-SD 41.7 % (39-53); RED BLOOD COUNT 4.64 M/uL (3.80-5.20); WHITE BLOOD COUNT 16.1 K/uL (4.1-10.2)
[2017-08-08 23:48] LABS: CHLORIDE 109 mEq/L (99-109); POTASSIUM 3.5 mEq/L (3.7-5.4); SODIUM 140 mEq/L (136-147)
[2017-08-08 23:50] LABS: GLUCOSE 134 mg/dL (70-99)
[2017-08-08 23:52] LABS: ANION GAP 8 MEQ/L (2-14)
[2017-08-08 23:54] LABS: GFR ESTIMATE (CALCULATED) > 59 mL/min/
[2017-08-08 23:55] LABS: UREA NITROGEN (BUN) 19 mg/dL (9-23)
[2017-08-09 00:01] LABS: TROP-I INTERPRETATION NEGATIVE; TROPONIN-I < 0.01 ng/mL (0.0-0.30)
[2017-08-09 02:38] LABS: TROP-I INTERPRETATION NEGATIVE; TROPONIN-I < 0.01 ng/mL (0.0-0.30)
[2017-08-09 04:17] VITALS: BP 125/86
== END 2017-08-09 04:26 | disposition home or self-care (01) ==
LOC: EME → EDBD 22:37 → EME 08-09 04:26
PROVIDERS: Emergency Medicine
DX: J45.901 Unspecified asthma with (acute) exacerbation (principal); F17.200 Nicotine dependence, unspecified, uncomplicated; F41.9 Anxiety disorder, unspecified; I11.0 Hypertensive heart disease with heart failure; I50.9 Heart failure, unspecified; K21.9 Gastro-esophageal reflux disease without esophagitis; R73.03 Prediabetes; Z79.891 Long term (current) use of opiate analgesic; Z79.82 Long term (current) use of aspirin; Z88.8 Allergy status to other drugs, medicaments and biological substances
CPT/HCPCS: 71020; 80048; 84484; 85025; 93005; 94640; 99281; 99285; J3475; J7030

== ENCOUNTER 2017-09-28 12:42 | Emergency (ER) | payer OTHER ==
[~2017-09-28] VITALS: Ht 170.2 cm; Wt 118.0 kg
[~2017-09-28 12:42] MED LIST changes: +CALCIUM 500 MG1 EACH PO
[2017-09-28] MEDS ORDERED: PREDNISONE20 MG PO (13:34)
[2017-09-28 13:50] VITALS: BP 127/84
[2017-09-29] MEDS ORDERED: TOPAMAX25 MG PO (01:53)
[2017-09-29] MEDS ORDERED: IBUPROFEN800 MG PO (01:54)
== END 2017-09-28 13:59 | disposition home or self-care (01) ==
LOC: EME 12:42
DX: J45.901 Unspecified asthma with (acute) exacerbation (principal); I11.0 Hypertensive heart disease with heart failure; I50.9 Heart failure, unspecified; K21.9 Gastro-esophageal reflux disease without esophagitis; R73.03 Prediabetes; F41.9 Anxiety disorder, unspecified; Z87.442 Personal history of urinary calculi; Z79.82 Long term (current) use of aspirin; Z88.8 Allergy status to other drugs, medicaments and biological substances
CPT/HCPCS: 93005; 99281; 99284; J7512; J7644

== ENCOUNTER 2017-09-28 22:12 | Observation (INO) | payer OTHER ==
[~2017-09-28] VITALS: Ht 170.2 cm; Wt 119.0 kg
[2017-09-28 22:39] LABS: HEMATOCRIT 41.9 % (36.0-46.0); HEMOGLOBIN 14.3 G/DL (11.9-15.5); MCH 29.8 PG (29.0-34.0); MCHC 34.1 G/DL (30.0-36.0); MCV 87.3 FL (83-99); PLATELET COUNT 407 K/uL (156-360); RBC DIS.WIDTH-CV 13.5 % (11.8-14.6); RBC DIS.WIDTH-SD 43.1 % (39-53); WHITE BLOOD COUNT 18.3 K/uL (4.1-10.2)
[2017-09-28 22:52] LABS: CHLORIDE 109 mEq/L (99-109); POTASSIUM 4.2 mEq/L (3.7-5.4); SODIUM 139 mEq/L (136-147)
[2017-09-28 22:54] LABS: GLUCOSE 158 mg/dL (70-99)
[2017-09-28 22:58] LABS: CREATININE 0.9 mg/dL (0.6-1.3); GFR ESTIMATE (CALCULATED) > 59 mL/min/; UREA NITROGEN (BUN) 13 mg/dL (9-23)
[2017-09-28 23:08] LABS: TROP-I INTERPRETATION NEGATIVE; TROPONIN-I < 0.01 ng/mL (0.0-0.30)
[2017-09-29] MEDS ORDERED: TOPAMAX25 MG PO (01:53)
[2017-09-29] MEDS ORDERED: IBUPROFEN800 MG PO (01:54)
[2017-09-29 04:44] LABS: HDL CHOLESTEROL 53 MG/DL (Desirable>=50); LDL CHOLESTEROL 97 mg/dL (Desirable<100); NON-HDL CHOLESTEROL 109 mg/dL (Desirable<160); TOTAL CHOLESTEROL 162 mg/dL (Desirable<200); TRIGLYCERIDES 58 MG/DL (Normal: <150)
[2017-09-29 09:42] LABS: Estimated Average Glucose 117 mg/dL (70-123); HEMOGLOBIN A1c (GLYCOHEMOGLOB) 5.7 % HGB (Below 5.7)
[2017-09-29 14:53] VITALS: BP 153/84
== END 2017-09-29 14:30 | disposition home or self-care (01) ==
LOC: EME 22:12 → EDOF 09-29 02:52 → ENRESERV 09-29 02:53 → CANRESERV 09-29 12:15 → EDOF 09-29 14:30
PROVIDERS: Hospitalist
DX: G43.909 Migraine, unspecified, not intractable, without status migrainosus (principal); D72.829 Elevated white blood cell count, unspecified; T38.0X5A Adverse effect of glucocorticoids and synthetic analogues, initial encounter; J45.909 Unspecified asthma, uncomplicated; G89.4 Chronic pain syndrome; F41.9 Anxiety disorder, unspecified; G40.909 Epilepsy, unspecified, not intractable, without status epilepticus; I10 Essential (primary) hypertension; Z90.49 Acquired absence of other specified parts of digestive tract; Z90.710 Acquired absence of both cervix and uterus; Z82.49 Family history of ischemic heart disease and other diseases of the circulatory system; Z88.8 Allergy status to other drugs, medicaments and biological substances; Z91.09 Other allergy status, other than to drugs and biological substances
CPT/HCPCS: 70450; 70544; 70549; 70551; 71046; 80048; 80061; 83036; 84484; 85027; 93005; 93880; 94640; 94640 76; 99202; G0378; J0780; J1200; J1650; J7030

== ENCOUNTER 2017-10-05 23:32 | Observation (INO) | payer OTHER ==
[~2017-10-05] VITALS: Ht 170.2 cm; Wt 127.2 kg
[~2017-10-05 23:32] MED LIST changes: +IBUPROFEN800 MG PO
[2017-10-06 00:38] LABS: HEMATOCRIT 37.9 % (36.0-46.0); HEMOGLOBIN 12.9 G/DL (11.9-15.5); MCH 29.9 PG (29.0-34.0); MCV 87.9 FL (83-99); PLATELET COUNT 319 K/uL (156-360); RBC DIS.WIDTH-CV 13.4 % (11.8-14.6); RBC DIS.WIDTH-SD 43.1 % (39-53); RED BLOOD COUNT 4.31 M/uL (3.80-5.20)
[2017-10-06 00:50] LABS: ALBUMIN 3.9 g/dL (3.2-4.8); CHLORIDE 111 mEq/L (99-109); POTASSIUM 3.3 mEq/L (3.7-5.4); SODIUM 139 mEq/L (136-147)
[2017-10-06 00:51] LABS: MAGNESIUM 1.9 mg/dL (1.3-2.7)
[2017-10-06 00:53] LABS: GLUCOSE 104 mg/dL (70-99)
[2017-10-06 00:54] LABS: TOTAL BILIRUBIN 0.9 mg/dL (0.0-1.0)
[2017-10-06 00:56] LABS: ALKALINE PHOSPHATASE 98 IU/L (3-129); CREATININE 0.9 mg/dL (0.6-1.3); GFR ESTIMATE (CALCULATED) > 59 mL/min/; PHOSPHORUS 2.7 mg/dL (2.5-4.9)
[2017-10-06 00:57] LABS: UREA NITROGEN (BUN) 11 mg/dL (9-23)
[2017-10-06 00:58] LABS: AST (GOT) 13 IU/L (2-34)
[2017-10-06 00:58] LABS: TROP-I INTERPRETATION NEGATIVE; TROPONIN-I < 0.01 ng/mL (0.0-0.30)
[2017-10-06 00:59] LABS: ALT (GPT) 13 IU/L (3-49)
[2017-10-06 01:00] LABS: LIPASE 15 U/L (1.0-51.0)
[2017-10-06] MEDS ORDERED: ZANAFLEX2 MG PO (02:38)
[2017-10-06 08:09] LABS: THYROTROPIN (TSH) 2.7 MIU/L (0.4-5.5)
[2017-10-06 17:05] VITALS: BP 125/63
[2017-10-06 19:10] VITALS: BP 124/57
[2017-10-06 23:48] VITALS: BP 107/61
[2017-10-07 03:48] VITALS: BP 96/52
[2017-10-07 05:33] LABS: MCH 30.1 PG (29.0-34.0); MCHC 33.3 G/DL (30.0-36.0); MCV 90.2 FL (83-99); PLATELET COUNT 253 K/uL (156-360); RBC DIS.WIDTH-CV 13.9 % (11.8-14.6); RBC DIS.WIDTH-SD 45.9 % (39-53); RED BLOOD COUNT 3.66 M/uL (3.80-5.20); WHITE BLOOD COUNT 10.6 K/uL (4.1-10.2)
[2017-10-07 05:57] LABS: CHLORIDE 109 MEQ/L (99-109); CREATININE 0.8 MG/DL (0.6-1.3); GFR ESTIMATE (CALCULATED) > 59 mL/min/; GLUCOSE 121 mg/dL (70-99); POTASSIUM 3.9 MEQ/L (3.7-5.4); SODIUM 140 MEQ/L (136-147); UREA NITROGEN (BUN) 8 mg/dL (9-23)
[2017-10-07 08:46] VITALS: BP 133/62
[2017-10-07] MEDS ORDERED: XOPENEX HF200 INHALA IH (11:09)
[2017-10-07 16:00] VITALS: BP 128/60
== END 2017-10-07 17:10 | disposition home or self-care (01) ==
LOC: EME 23:32 → 5WEST 10-06 02:56 → EDOF 10-06 02:56 → ENRESERV 10-06 03:06 → 5WEST 10-06 16:35
PROVIDERS: Emergency Medicine; Internal Medicine
DX: J45.41 Moderate persistent asthma with (acute) exacerbation (principal); R00.0 Tachycardia, unspecified; R42 Dizziness and giddiness; G43.109 Migraine with aura, not intractable, without status migrainosus; G89.29 Other chronic pain; G40.909 Epilepsy, unspecified, not intractable, without status epilepticus; F41.9 Anxiety disorder, unspecified; I10 Essential (primary) hypertension; E78.5 Hyperlipidemia, unspecified; K21.9 Gastro-esophageal reflux disease without esophagitis; E66.01 Morbid (severe) obesity due to excess calories; Z68.41 Body mass index [BMI] 40.0-44.9, adult; K58.9 Irritable bowel syndrome, unspecified; D68.9 Coagulation defect, unspecified; Z90.49 Acquired absence of other specified parts of digestive tract; Z90.710 Acquired absence of both cervix and uterus; Z82.49 Family history of ischemic heart disease and other diseases of the circulatory system; Z91.041 Radiographic dye allergy status; Z88.8 Allergy status to other drugs, medicaments and biological substances; Z91.09 Other allergy status, other than to drugs and biological substances
CPT/HCPCS: 71046; 78582; 80048; 80053; 83690; 83735; 84100; 84443; 84484; 85027; 85379; 93005; 94640; 94640 76; 94644; 99202; 99281; 99285; A9540; A9567; G0378; J2405; J3475; J7030

== ENCOUNTER 2017-10-18 12:32 | Observation (INO) | payer OTHER ==
[~2017-10-18] VITALS: Ht 170.2 cm; Wt 122.7 kg
[~2017-10-18 12:32] MED LIST changes: +XOPENEX HF200 INHALA IH; +ZANAFLEX2 MG PO
[2017-10-18 13:05] LABS: BASOPHIL (%) 0.2 % (0-1); EOSINOPHIL (%) 1.1 % (0-5); EOSINOPHIL COUNT 0.1 K/uL (0-0.3); HEMATOCRIT 43.6 % (36.0-46.0); HEMOGLOBIN 14.3 G/DL (11.9-15.5); IMMATURE GRANULOCYTE (%) 0.4 % (0.0-0.7); LYMPHOCYTE (%) 39.2 % (15-42); MCH 29.2 PG (29.0-34.0); MCHC 32.8 G/DL (30.0-36.0); MCV 89.2 FL (83-99); MONOCYTE COUNT 0.9 K/uL (0-0.8); NEUTROPHIL (%) 52.1 % (45-76); NEUTROPHIL COUNT 6.6 K/uL (1.8-6.4); PLATELET COUNT 321 K/uL (156-360); RBC DIS.WIDTH-SD 45.6 % (39-53); RED BLOOD COUNT 4.89 M/uL (3.80-5.20); WHITE BLOOD COUNT 12.6 K/uL (4.1-10.2)
[2017-10-18 13:10] LABS: ALBUMIN 3.8 g/dL (3.2-4.8); CHLORIDE 109 mEq/L (99-109)
[2017-10-18 13:11] LABS: POTASSIUM 3.4 mEq/L (3.7-5.4); SODIUM 140 mEq/L (136-147)
[2017-10-18 13:13] LABS: GLUCOSE 131 mg/dL (70-99); TOTAL PROTEIN 7.4 g/dL (6.4-8.3)
[2017-10-18 13:15] LABS: TOTAL BILIRUBIN 0.8 mg/dL (0.0-1.0)
[2017-10-18 13:16] LABS: ALKALINE PHOSPHATASE 105 IU/L (3-129)
[2017-10-18 13:17] LABS: GFR ESTIMATE (CALCULATED) > 59 mL/min/
[2017-10-18 13:18] LABS: AST (GOT) 16 IU/L (2-34); UREA NITROGEN (BUN) 15 mg/dL (9-23)
[2017-10-18 13:19] LABS: ALT (GPT) 13 IU/L (3-49)
[2017-10-18 16:27] LABS: TROP-I INTERPRETATION NEGATIVE; TROPONIN-I < 0.01 ng/mL (0.0-0.30)
[2017-10-18] MEDS ORDERED: METOPROLOL TART25 MG PO (18:38)
[2017-10-18] MEDS ORDERED: VENTOLIN HFA18 GM IH (18:39)
[2017-10-18 20:43] VITALS: BP 138/78
[2017-10-18 22:25] LABS: TROP-I INTERPRETATION NEGATIVE; TROPONIN-I < 0.01 ng/mL (0.0-0.30)
[2017-10-19 01:07] VITALS: BP 118/56
[2017-10-19 04:49] LABS: TROP-I INTERPRETATION NEGATIVE; TROPONIN-I < 0.01 ng/mL (0.0-0.30)
[2017-10-19 05:05] VITALS: BP 93/59
[2017-10-19 08:47] VITALS: BP 134/66
[2017-10-19] MEDS ORDERED: AZITHROMYCIN500 M1 PO (11:16)
[2017-10-19 11:18] LABS: MONOSPOT (MONONUCLEOSIS SEROL) NEGATIVE
[2017-10-19] MEDS ORDERED: DELTASONE20 M1 PO (11:18)
== END 2017-10-19 11:54 | disposition home or self-care (01) ==
LOC: EME 12:32 → 5WEST 14:19 → EDOF 14:19 → ENRESERV 14:22 → CANRESERV 14:22 → ENRESERV 14:23 → 5WEST 19:20
PROVIDERS: Emergency Medicine; Internal Medicine; Nurse Practitioner Family
DX: J45.901 Unspecified asthma with (acute) exacerbation (principal); I10 Essential (primary) hypertension; E87.6 Hypokalemia; G89.4 Chronic pain syndrome; F41.9 Anxiety disorder, unspecified; G40.909 Epilepsy, unspecified, not intractable, without status epilepticus; Z90.49 Acquired absence of other specified parts of digestive tract; Z90.710 Acquired absence of both cervix and uterus
CPT/HCPCS: 71045; 80053; 84484; 85025; 86308; 93005; 94640; 94640 76; 94644; 94799; 99202; G0378; J1650; J2930; J3475; J7040; J7644

== ENCOUNTER 2017-11-17 21:48 | Observation (INO) | payer OTHER ==
[~2017-11-17] VITALS: Ht 170.2 cm; Wt 119.4 kg
[~2017-11-17 21:48] MED LIST changes: +METOPROLOL TART25 MG PO
[2017-11-17 23:01] LABS: HEMATOCRIT 38.9 % (36.0-46.0); HEMOGLOBIN 12.9 G/DL (11.9-15.5); MCH 29.9 PG (29.0-34.0); MCHC 33.2 G/DL (30.0-36.0); MCV 90.3 FL (83-99); PLATELET COUNT 272 K/uL (156-360); RBC DIS.WIDTH-CV 14.1 % (11.8-14.6); RBC DIS.WIDTH-SD 46.7 % (39-53); RED BLOOD COUNT 4.31 M/uL (3.80-5.20); WHITE BLOOD COUNT 13.4 K/uL (4.1-10.2)
[2017-11-17 23:03] LABS: CARBON DIOXIDE (BICARBONATE) 24.2 MEQ/L (20-31)
[2017-11-17 23:14] LABS: CHLORIDE 107 mEq/L (99-109); POTASSIUM 3.8 mEq/L (3.7-5.4); SODIUM 139 mEq/L (136-147)
[2017-11-17 23:16] LABS: GLUCOSE 197 mg/dL (70-99)
[2017-11-17 23:19] LABS: CREATININE 0.9 mg/dL (0.6-1.3); GFR ESTIMATE (CALCULATED) > 59 mL/min/
[2017-11-17 23:20] LABS: UREA NITROGEN (BUN) 13 mg/dL (9-23)
[2017-11-17 23:24] LABS: TROP-I INTERPRETATION NEGATIVE; TROPONIN-I < 0.01 ng/mL (0.0-0.30)
[2017-11-18] MEDS ORDERED: EFFEXOR XR75 MG PO (01:19)
[2017-11-18 04:26] VITALS: BP 146/65
[2017-11-18 07:34] VITALS: BP 118/78
[2017-11-18 11:17] VITALS: BP 137/63
[2017-11-18] MEDS ORDERED: MEDROL DOSEPAK4 MG PO (15:44)
[2017-11-18] MEDS ORDERED: AZITHROMYCIN500 MG PO (15:44)
[2017-11-18 15:54] VITALS: BP 131/75
== END 2017-11-18 17:04 | disposition home or self-care (01) ==
LOC: EME 21:48 → ENPENDDIS 11-18 → 5WEST 11-18 03:21 → EDOF 11-18 03:21 → ENRESERV 11-18 03:23 → 5WEST 11-18 04:08
PROVIDERS: Emergency Medicine
DX: J45.901 Unspecified asthma with (acute) exacerbation (principal); J20.9 Acute bronchitis, unspecified; R09.02 Hypoxemia; R00.2 Palpitations; I10 Essential (primary) hypertension; F41.9 Anxiety disorder, unspecified; G89.29 Other chronic pain; R06.02 Shortness of breath; R56.9 Unspecified convulsions; Z90.49 Acquired absence of other specified parts of digestive tract; Z90.710 Acquired absence of both cervix and uterus; Z88.8 Allergy status to other drugs, medicaments and biological substances; Z91.041 Radiographic dye allergy status; Z87.442 Personal history of urinary calculi
CPT/HCPCS: 71046; 78582; 80048; 82803; 83605; 83880; 84484; 85027; 85379; 87040; 94640; 94640 76; 99202; 99281; 99285; A9540; A9567; G0378; J1100; J1650; J2930; J7644

== ENCOUNTER 2017-12-01 17:54 | Emergency (ER) | payer OTHER ==
[~2017-12-01] VITALS: Ht 170.2 cm; Wt 124.9 kg
[~2017-12-01 17:54] MED LIST changes: +AZITHROMYCIN500 MG PO; +EFFEXOR XR75 MG PO
[2017-12-01 18:20] LABS: HEMATOCRIT 41.6 % (36.0-46.0); HEMOGLOBIN 13.9 G/DL (11.9-15.5); MCH 30.3 PG (29.0-34.0); MCHC 33.4 G/DL (30.0-36.0); MCV 90.8 FL (83-99); PLATELET COUNT 332 K/uL (156-360); RBC DIS.WIDTH-CV 14.6 % (11.8-14.6); RBC DIS.WIDTH-SD 47.8 % (39-53); RED BLOOD COUNT 4.58 M/uL (3.80-5.20); WHITE BLOOD COUNT 19.5 K/uL (4.1-10.2)
[2017-12-01 18:28] LABS: ALBUMIN 3.8 g/dL (3.2-4.8); CHLORIDE 108 mEq/L (99-109); POTASSIUM 3.6 mEq/L (3.7-5.4); SODIUM 142 mEq/L (136-147)
[2017-12-01 18:29] LABS: MAGNESIUM 2.2 mg/dL (1.3-2.7)
[2017-12-01 18:31] LABS: GLUCOSE 139 mg/dL (70-99); TOTAL PROTEIN 6.8 g/dL (6.4-8.3)
[2017-12-01 18:33] LABS: TOTAL BILIRUBIN 0.7 mg/dL (0.0-1.0)
[2017-12-01 18:34] LABS: ALKALINE PHOSPHATASE 85 IU/L (3-129)
[2017-12-01 18:35] LABS: GFR ESTIMATE (CALCULATED) > 59 mL/min/
[2017-12-01 18:36] LABS: AST (GOT) 14 IU/L (2-34); UREA NITROGEN (BUN) 14 mg/dL (9-23)
[2017-12-01 18:37] LABS: ALT (GPT) 15 IU/L (3-49)
[2017-12-01 18:43] LABS: TROP-I INTERPRETATION NEGATIVE; TROPONIN-I < 0.01 ng/mL (0.0-0.30)
[2017-12-01 18:58] LABS: ABS NEUTROPHIL COUNT 10.9; ATYPICAL LYMPHOCYTE 8.8 %; BAND NEUTROPHILS 1.8 % (0-8.0); EOSINOPHIL ABS CT 0; LYMPHOCYTES 30.1 % (15.0-45.0); MONOCYTES 4.4 % (0-9.0); MYELOCYTES 0.9 %; PLAT.SUFFICIENCY ADEQUATE; SMUDGE CELLS 8.8
[2017-12-01] MEDS ORDERED: VENTOLIN HFA18 GM IH (21:36)
[2017-12-01 21:56] VITALS: BP 106/85
== END 2017-12-01 21:58 | disposition home or self-care (01) ==
LOC: EME 17:54
PROVIDERS: Emergency Medicine
DX: J45.901 Unspecified asthma with (acute) exacerbation (principal); I10 Essential (primary) hypertension; R00.0 Tachycardia, unspecified
CPT/HCPCS: 71045; 80053; 83735; 83880; 84484; 85025; 93005; 99281; 99284; J1100; J3475

== ENCOUNTER 2017-12-18 17:54 | Emergency (ER) | payer OTHER ==
[~2017-12-18] VITALS: Ht 170.2 cm; Wt 118.2 kg
[2017-12-18 18:49] LABS: HEMATOCRIT 41.9 % (36.0-46.0); MCH 30.2 PG (29.0-34.0); MCHC 33.4 G/DL (30.0-36.0); MCV 90.5 FL (83-99); PLATELET COUNT 277 K/uL (156-360); RBC DIS.WIDTH-CV 13.9 % (11.8-14.6); RBC DIS.WIDTH-SD 46.3 % (39-53); RED BLOOD COUNT 4.63 M/uL (3.80-5.20); WHITE BLOOD COUNT 14.7 K/uL (4.1-10.2)
[2017-12-18 19:07] LABS: CHLORIDE 106 mEq/L (99-109); POTASSIUM 3.7 mEq/L (3.7-5.4); SODIUM 141 mEq/L (136-147)
[2017-12-18 19:08] LABS: GLUCOSE 141 mg/dL (70-99)
[2017-12-18 19:12] LABS: CREATININE 0.8 mg/dL (0.6-1.3); GFR ESTIMATE (CALCULATED) > 59 mL/min/
[2017-12-18 19:13] LABS: UREA NITROGEN (BUN) 11 mg/dL (9-23)
[2017-12-18] MEDS ORDERED: PREDNISONE50 MG PO (21:01)
[2017-12-18 21:25] VITALS: BP 116/65
== END 2017-12-18 21:26 | disposition home or self-care (01) ==
LOC: EME 17:54
DX: J45.909 Unspecified asthma, uncomplicated (principal); I11.0 Hypertensive heart disease with heart failure; I50.9 Heart failure, unspecified; K21.9 Gastro-esophageal reflux disease without esophagitis; R73.03 Prediabetes; F41.9 Anxiety disorder, unspecified; Z87.442 Personal history of urinary calculi; Z90.49 Acquired absence of other specified parts of digestive tract; Z87.01 Personal history of pneumonia (recurrent); Z79.51 Long term (current) use of inhaled steroids; Z91.041 Radiographic dye allergy status; Z88.6 Allergy status to analgesic agent; Z88.8 Allergy status to other drugs, medicaments and biological substances
CPT/HCPCS: 71046; 80048; 85027; 94644; 99281; 99285; J1100; J3475; J7644

== ENCOUNTER 2018-01-09 17:41 | Inpatient (IN) | payer OTHER ==
[~2018-01-09] VITALS: Ht 170.2 cm; Wt 121.5 kg
[~2018-01-09 17:41] MED LIST changes: +TESSALON PERLE100 MG PO
[2018-01-09 18:10] LABS: HEMATOCRIT 41.3 % (36.0-46.0); MCH 30.6 PG (29.0-34.0); MCHC 33.9 G/DL (30.0-36.0); MCV 90.4 FL (83-99); PLATELET COUNT 310 K/uL (156-360); RBC DIS.WIDTH-CV 14.3 % (11.8-14.6); RBC DIS.WIDTH-SD 46.8 % (39-53); RED BLOOD COUNT 4.57 M/uL (3.80-5.20); WHITE BLOOD COUNT 16.7 K/uL (4.1-10.2)
[2018-01-09 18:19] LABS: CHLORIDE 108 mEq/L (99-109); POTASSIUM 3.8 mEq/L (3.7-5.4); SODIUM 142 mEq/L (136-147)
[2018-01-09 18:20] LABS: GLUCOSE 119 mg/dL (70-99)
[2018-01-09 18:24] LABS: GFR ESTIMATE (CALCULATED) > 59 mL/min/
[2018-01-09 18:25] LABS: UREA NITROGEN (BUN) 11 mg/dL (9-23)
[2018-01-09 18:30] LABS: TROP-I INTERPRETATION NEGATIVE; TROPONIN-I < 0.01 ng/mL (0.0-0.30)
[2018-01-09] MEDS ORDERED: FOLIC ACID1 MG PO (22:26)
[2018-01-09] MEDS ORDERED: METHOTREXATE2.5 MG PO (22:30)
[2018-01-09] MEDS ORDERED: MYCOSTATIN 100,60 ML PO (22:35)
[2018-01-09] MEDS ORDERED: DIOVAN40 MG PO (22:35)
[2018-01-10 02:50] VITALS: BP 124/67
[2018-01-10 05:50] LABS: HEMATOCRIT 40.4 % (36.0-46.0); HEMOGLOBIN 13.1 G/DL (11.9-15.5); MCH 29.7 PG (29.0-34.0); MCHC 32.4 G/DL (30.0-36.0); MCV 91.6 FL (83-99); PLATELET COUNT 319 K/uL (156-360); RBC DIS.WIDTH-CV 14.5 % (11.8-14.6); RBC DIS.WIDTH-SD 48.8 % (39-53); RED BLOOD COUNT 4.41 M/uL (3.80-5.20); WHITE BLOOD COUNT 17.5 K/uL (4.1-10.2)
[2018-01-10 06:24] LABS: CHLORIDE 104 MEQ/L (99-109); CREATININE 0.9 MG/DL (0.6-1.3); GFR ESTIMATE (CALCULATED) > 59 mL/min/; GLUCOSE 199 mg/dL (70-99); POTASSIUM 4.7 MEQ/L (3.7-5.4); SODIUM 139 MEQ/L (136-147); UREA NITROGEN (BUN) 13 mg/dL (9-23)
[2018-01-10 07:48] VITALS: BP 109/66
[2018-01-10 11:37] VITALS: BP 128/61
[2018-01-10 15:47] VITALS: BP 115/57
[2018-01-10 19:00] VITALS: BP 156/77
[2018-01-10 22:08] VITALS: BP 117/68
[2018-01-11 00:25] VITALS: BP 124/57
[2018-01-11 03:59] VITALS: BP 110/60
[2018-01-11 07:11] LABS: PLATELET COUNT 374 K/uL (156-360)
[2018-01-11 07:51] LABS: HEMATOCRIT 40.8 % (36.0-46.0); HEMOGLOBIN 13.4 G/DL (11.9-15.5); MCH 30.4 PG (29.0-34.0); MCHC 32.8 G/DL (30.0-36.0); MCV 92.5 FL (83-99); RBC DIS.WIDTH-CV 14.8 % (11.8-14.6); RBC DIS.WIDTH-SD 49.8 % (39-53); RED BLOOD COUNT 4.41 M/uL (3.80-5.20)
[2018-01-11 07:53] VITALS: BP 144/65
[2018-01-11] MEDS ORDERED: PREDNISONE20 MG PO (09:35)
== END 2018-01-11 11:37 | disposition home or self-care (01) | DRG 202 ==
LOC: EME 17:41 → EDOF 22:52 → 4EAST 22:52 → ENRESERV 22:53 → 4EAST 01-10 02:44 → ENRESERV 01-10 20:36 → 2EAST 01-10 21:58
PROVIDERS: Emergency Medicine Emergency Medical Services; Hospitalist; Internal Medicine
PROC: 5A09357 Assistance with Respiratory Ventilation, Less than 24 Consecutive Hours, Continuous Positive Airway Pressure (ICD-10-PCS; principal; 2018-01-09)
DX: J45.41 Moderate persistent asthma with (acute) exacerbation (principal); J96.01 Acute respiratory failure with hypoxia; G89.4 Chronic pain syndrome; I11.0 Hypertensive heart disease with heart failure; I50.9 Heart failure, unspecified; D72.829 Elevated white blood cell count, unspecified; R00.0 Tachycardia, unspecified; T38.0X5A Adverse effect of glucocorticoids and synthetic analogues, initial encounter; Q89.8 Other specified congenital malformations; J38.3 Other diseases of vocal cords; E66.9 Obesity, unspecified; Z68.41 Body mass index [BMI] 40.0-44.9, adult; G40.909 Epilepsy, unspecified, not intractable, without status epilepticus; G43.109 Migraine with aura, not intractable, without status migrainosus; E78.5 Hyperlipidemia, unspecified; K58.9 Irritable bowel syndrome, unspecified; K21.9 Gastro-esophageal reflux disease without esophagitis; R73.03 Prediabetes; F41.9 Anxiety disorder, unspecified; H54.61 Unqualified visual loss, right eye, normal vision left eye; Z79.899 Other long term (current) drug therapy; Z87.442 Personal history of urinary calculi; Z90.710 Acquired absence of both cervix and uterus; Z82.49 Family history of ischemic heart disease and other diseases of the circulatory system; Z82.5 Family history of asthma and other chronic lower respiratory diseases
CPT/HCPCS: 71045; 80048; 83880; 84484; 85027; 94002; 94640; 94640 76; 94644; 94645; 94799; 99202; 99281; 99285; J1650; J2930; J3475; J7040; J7644; J8610

== ENCOUNTER 2018-01-26 20:01 | Inpatient (IN) | payer OTHER ==
[~2018-01-26] VITALS: Ht 170.2 cm; Wt 120.5 kg
[~2018-01-26 20:01] MED LIST changes: +DIOVAN40 MG PO; +FOLIC ACID1 MG PO; +METHOTREXATE2.5 MG PO; +MYCOSTATIN 100,60 ML PO
[2018-01-26 20:41] LABS: BASOPHIL (%) 0.3 % (0-1); BASOPHIL COUNT 0.1 K/uL (0-0.1); EOSINOPHIL (%) 0.4 % (0-5); EOSINOPHIL COUNT 0.1 K/uL (0-0.3); HEMOGLOBIN 13.8 G/DL (11.9-15.5); LYMPHOCYTE (%) 27.6 % (15-42); LYMPHOCYTE COUNT 5.5 K/uL (1.0-2.8); MCH 30.7 PG (29.0-34.0); MCHC 33.7 G/DL (30.0-36.0); MCV 91.3 FL (83-99); MONOCYTE (%) 7.8 % (3-12); MONOCYTE COUNT 1.6 K/uL (0-0.8); NEUTROPHIL (%) 62.9 % (45-76); NEUTROPHIL COUNT 12.5 K/uL (1.8-6.4); PLATELET COUNT 328 K/uL (156-360); RBC DIS.WIDTH-CV 14.5 % (11.8-14.6); RBC DIS.WIDTH-SD 48.3 % (39-53); RED BLOOD COUNT 4.49 M/uL (3.80-5.20); WHITE BLOOD COUNT 19.8 K/uL (4.1-10.2)
[2018-01-26 20:47] LABS: ALBUMIN 4.2 g/dL (3.2-4.8); CHLORIDE 110 mEq/L (99-109); POTASSIUM 4.1 mEq/L (3.7-5.4); SODIUM 142 mEq/L (136-147)
[2018-01-26 20:50] LABS: GLUCOSE 122 mg/dL (70-99); TOTAL PROTEIN 7.4 g/dL (6.4-8.3)
[2018-01-26 20:52] LABS: TOTAL BILIRUBIN 0.9 mg/dL (0.0-1.0)
[2018-01-26 20:53] LABS: ALKALINE PHOSPHATASE 95 IU/L (3-129); GFR ESTIMATE (CALCULATED) > 59 mL/min/
[2018-01-26 20:54] LABS: UREA NITROGEN (BUN) 17 mg/dL (9-23)
[2018-01-26 20:55] LABS: AST (GOT) 16 IU/L (2-34)
[2018-01-26 20:56] LABS: ALT (GPT) 24 IU/L (3-49)
[2018-01-26 21:02] LABS: QUANTITATIVE HCG < 4.0 MIU/ML
[2018-01-27] VITALS (23 sets, daily range): BP systolic 86–163; BP diastolic 62–105
[2018-01-27 04:11] LABS: BASE EXCESS -8.7 mEq/L (-3 to +3); BICARBONATE 15.5 mEq/L (22-26); CARBOXY HGB 1.3 % (0-5); METHEMOGLOBIN 1.6 % (0-1.5); PCO2 28 mm Hg (35-45); PO2 533 mm Hg (80-100); pH 7.35 (7.35-7.45)
[2018-01-27 04:12] LABS: COMMENTS - BLOOD GASES C+; DEVICE VENT; FI02 100 %; MODE SPONT; PEEP 5 CM/H20; PRES. SUPPORT 10 CM/H2O; SITE RR; TOTAL RESP RATE 20 resp/min
[2018-01-27 05:39] LABS: HEMATOCRIT 38.1 % (36.0-46.0); HEMOGLOBIN 12.3 G/DL (11.9-15.5); MCH 29.9 PG (29.0-34.0); MCHC 32.3 G/DL (30.0-36.0); MCV 92.5 FL (83-99); PLATELET COUNT 277 K/uL (156-360); RBC DIS.WIDTH-CV 14.7 % (11.8-14.6); RBC DIS.WIDTH-SD 49.6 % (39-53); RED BLOOD COUNT 4.12 M/uL (3.80-5.20); WHITE BLOOD COUNT 18.2 K/uL (4.1-10.2)
[2018-01-27 05:58] LABS: CHLORIDE 106 MEQ/L (99-109); CREATININE 1.1 MG/DL (0.6-1.3); GFR ESTIMATE (CALCULATED) 57 mL/min/; SODIUM 140 MEQ/L (136-147); UREA NITROGEN (BUN) 15 mg/dL (9-23)
[2018-01-27 06:10] LABS: GLUCOSE 274 mg/dL (70-99)
[2018-01-28] VITALS (11 sets, daily range): BP systolic 99–149; BP diastolic 48–77
[2018-01-28 11:17] LABS: BASOPHIL (%) 0.1 % (0-1); EOSINOPHIL (%) 0 % (0-5); HEMATOCRIT 38.5 % (36.0-46.0); HEMOGLOBIN 12.5 G/DL (11.9-15.5); IMMATURE GRANULOCYTE (%) 1.3 % (0.0-0.7); LYMPHOCYTE (%) 3.1 % (15-42); LYMPHOCYTE COUNT 0.9 K/uL (1.0-2.8); MCH 30.3 PG (29.0-34.0); MCHC 32.5 G/DL (30.0-36.0); MCV 93.4 FL (83-99); MONOCYTE (%) 4.4 % (3-12); MONOCYTE COUNT 1.2 K/uL (0-0.8); NEUTROPHIL (%) 91.1 % (45-76); NEUTROPHIL COUNT 25.1 K/uL (1.8-6.4); PLATELET COUNT 319 K/uL (156-360); RBC DIS.WIDTH-CV 15.3 % (11.8-14.6); RBC DIS.WIDTH-SD 52.1 % (39-53); RED BLOOD COUNT 4.12 M/uL (3.80-5.20); WHITE BLOOD COUNT 27.5 K/uL (4.1-10.2)
[2018-01-28 12:04] LABS: ALBUMIN 3.8 G/DL (3.2-4.8); ALKALINE PHOSPHATASE 77 IU/L (3-129); ALT (GPT) 16 IU/L (3-49); AST (GOT) 11 IU/L (2-34); CHLORIDE 106 MEQ/L (99-109); GFR ESTIMATE (CALCULATED) > 59 mL/min/; GLUCOSE 208 mg/dL (70-99); MAGNESIUM 2.1 mg/dl (1.3-2.7); PHOSPHORUS 2.2 mg/dL (2.5-4.9); POTASSIUM 4.2 MEQ/L (3.7-5.4); SODIUM 141 MEQ/L (136-147); TOTAL BILIRUBIN 0.6 MG/DL (0.0-1.0); TOTAL PROTEIN 6.3 G/DL (6.4-8.3); UREA NITROGEN (BUN) 16 mg/dL (9-23)
[2018-01-28 12:20] LABS: HIGH-SENS C-REACTIVE PROTEIN 0.37 MG/DL (0.02-0.20)
[2018-01-29 04:07] VITALS: BP 105/52
[2018-01-29 05:34] LABS: BASOPHIL (%) 0.1 % (0-1); EOSINOPHIL (%) 0 % (0-5); HEMATOCRIT 35.2 % (36.0-46.0); HEMOGLOBIN 11.6 G/DL (11.9-15.5); LYMPHOCYTE (%) 9.2 % (15-42); MCH 30.7 PG (29.0-34.0); MCV 93.1 FL (83-99); MONOCYTE (%) 8.4 % (3-12); MONOCYTE COUNT 1.8 K/uL (0-0.8); NEUTROPHIL (%) 81.3 % (45-76); NEUTROPHIL COUNT 17.2 K/uL (1.8-6.4); PLATELET COUNT 301 K/uL (156-360); RBC DIS.WIDTH-CV 15.4 % (11.8-14.6); RBC DIS.WIDTH-SD 52.6 % (39-53); RED BLOOD COUNT 3.78 M/uL (3.80-5.20); WHITE BLOOD COUNT 21.2 K/uL (4.1-10.2)
[2018-01-29 06:01] LABS: HIGH-SENS C-REACTIVE PROTEIN 0.13 MG/DL (0.02-0.20); MAGNESIUM 2.1 mg/dl (1.3-2.7)
[2018-01-29 06:03] LABS: PHOSPHORUS 3.2 mg/dL (2.5-4.9)
[2018-01-29 06:05] LABS: ALBUMIN 3.4 G/DL (3.2-4.8); ALKALINE PHOSPHATASE 53 IU/L (3-129); ALT (GPT) 14 IU/L (3-49); AST (GOT) 9 IU/L (2-34); CHLORIDE 107 MEQ/L (99-109); CREATININE 0.9 MG/DL (0.6-1.3); GFR ESTIMATE (CALCULATED) > 59 mL/min/; GLUCOSE 146 mg/dL (70-99); POTASSIUM 4.6 MEQ/L (3.7-5.4); SODIUM 140 MEQ/L (136-147); TOTAL BILIRUBIN 0.7 MG/DL (0.0-1.0); TOTAL PROTEIN 5.5 G/DL (6.4-8.3); UREA NITROGEN (BUN) 18 mg/dL (9-23)
[2018-01-29 07:31] VITALS: BP 123/57
[2018-01-29] MEDS ORDERED: PREDNISONE10 M1 PO (09:41)
== END 2018-01-29 10:25 | disposition home or self-care (01) | DRG 189 ==
LOC: EME 20:01 → EDOF 23:07 → 4WEST 23:07 → ENRESERV 23:12 → EDOF 01-27 01:35 → ENRESERV 01-27 02:00 → 5EAST 01-27 02:02 → ENRESERV 01-27 03:00 → 4WEST 01-27 03:10 → ENRESERV 01-28 09:14 → 4WEST 01-28 11:25 → ENRESERV 01-28 11:31 → 4WEST 01-28 13:18 → 2EASTP 01-28 13:40 → ENPENDDIS 01-29 10:01 → 2EASTP 01-29 10:25
PROVIDERS: Emergency Medicine; Internal Medicine; Specialist
PROC: 5A0935Z Assistance with Respiratory Ventilation, Less than 24 Consecutive Hours (ICD-10-PCS; principal; 2018-01-27)
PROC: 0CJY8ZZ Inspection of Mouth and Throat, Via Natural or Artificial Opening Endoscopic (ICD-10-PCS; 2018-01-28)
DX: J96.01 Acute respiratory failure with hypoxia (principal); J45.42 Moderate persistent asthma with status asthmaticus; J38.5 Laryngeal spasm; J06.9 Acute upper respiratory infection, unspecified; I11.0 Hypertensive heart disease with heart failure; I50.9 Heart failure, unspecified; G89.4 Chronic pain syndrome; G40.909 Epilepsy, unspecified, not intractable, without status epilepticus; E78.5 Hyperlipidemia, unspecified; F41.9 Anxiety disorder, unspecified; F32.9 Major depressive disorder, single episode, unspecified; F39 Unspecified mood [affective] disorder; G43.909 Migraine, unspecified, not intractable, without status migrainosus; K21.9 Gastro-esophageal reflux disease without esophagitis; K58.9 Irritable bowel syndrome, unspecified; R73.03 Prediabetes; R00.0 Tachycardia, unspecified; E66.9 Obesity, unspecified; H54.61 Unqualified visual loss, right eye, normal vision left eye; Z68.41 Body mass index [BMI] 40.0-44.9, adult; Z91.041 Radiographic dye allergy status
CPT/HCPCS: 36600; 71045; 80048; 80053; 82785 90; 82803; 83735; 83880; 84100; 84145 90; 84702; 85025; 85027; 86141; 87641; 93005; 94002; 94640; 94640 76; 94644; 94760; 94799; 99202; 99281; 99285; J1650; J2060; J2930; J3010; J3475; J7512

== ENCOUNTER → 2018-02-06 | Outpatient (CLI) | payer OTHER ==
[~2018-02-06] VITALS: Ht 170.2 cm; Wt 124.2 kg
[~2018-02-06] MED LIST changes: +LOPRESSOR50 MG PO
== END | disposition home or self-care (01) ==
LOC: AMB 09:00
PROC: 0DB68ZX Excision of Stomach, Via Natural or Artificial Opening Endoscopic, Diagnostic (ICD-10-PCS; principal; 2018-02-06)
PROC: 0DB48ZX Excision of Esophagogastric Junction, Via Natural or Artificial Opening Endoscopic, Diagnostic (ICD-10-PCS; principal; 2018-02-06)
PROC: 0DC48ZZ Extirpation of Matter from Esophagogastric Junction, Via Natural or Artificial Opening Endoscopic (ICD-10-PCS; principal; 2018-02-06)
DX: K29.70 Gastritis, unspecified, without bleeding (principal); K22.70 Barrett's esophagus without dysplasia; B37.81 Candidal esophagitis; R14.0 Abdominal distension (gaseous); J45.50 Severe persistent asthma, uncomplicated; K59.09 Other constipation; I10 Essential (primary) hypertension; E66.01 Morbid (severe) obesity due to excess calories; Z90.49 Acquired absence of other specified parts of digestive tract; Z90.710 Acquired absence of both cervix and uterus; Z82.49 Family history of ischemic heart disease and other diseases of the circulatory system; Z83.3 Family history of diabetes mellitus; Z83.71 Family history of colonic polyps; Z82.5 Family history of asthma and other chronic lower respiratory diseases; Z88.8 Allergy status to other drugs, medicaments and biological substances
CPT/HCPCS: 88108; 88305; 88312; 88342 TC; 94640; 94640 76; J2405

== ENCOUNTER → 2018-02-22 | Outpatient (CLI) | payer OTHER | END | disposition home or self-care (01) | LOC: NUC 06:47 | DX: K31.84 Gastroparesis (principal) | CPT/HCPCS: 78264; A9541 ==

== ENCOUNTER 2018-02-23 17:04 | Emergency (ER) | payer OTHER ==
[~2018-02-23] VITALS: Ht 170.2 cm; Wt 124.6 kg
[2018-02-23 20:18] VITALS: BP 137/81
== END 2018-02-23 20:18 | disposition home or self-care (01) ==
LOC: EME 17:04
DX: J45.901 Unspecified asthma with (acute) exacerbation (principal); Z79.51 Long term (current) use of inhaled steroids; I10 Essential (primary) hypertension; I50.9 Heart failure, unspecified; K21.9 Gastro-esophageal reflux disease without esophagitis; R73.03 Prediabetes; G43.909 Migraine, unspecified, not intractable, without status migrainosus; H54.40 Blindness, one eye, unspecified eye; F41.9 Anxiety disorder, unspecified; Z87.01 Personal history of pneumonia (recurrent); Z86.79 Personal history of other diseases of the circulatory system; Z87.442 Personal history of urinary calculi; Z90.49 Acquired absence of other specified parts of digestive tract; Z88.8 Allergy status to other drugs, medicaments and biological substances; Z88.1 Allergy status to other antibiotic agents; Z91.041 Radiographic dye allergy status; Z91.09 Other allergy status, other than to drugs and biological substances
CPT/HCPCS: 94640 76; 99281; 99284

== ENCOUNTER 2018-03-21 20:29 | Inpatient (IN) | payer OTHER ==
[~2018-03-21] VITALS: Ht 170.2 cm; Wt 126.2 kg
[2018-03-21 20:57] LABS: BASOPHIL (%) 0.2 % (0-1); EOSINOPHIL (%) 0.9 % (0-5); EOSINOPHIL COUNT 0.2 K/uL (0-0.3); HEMATOCRIT 38.5 % (36.0-46.0); HEMOGLOBIN 13.2 G/DL (11.9-15.5); IMMATURE GRANULOCYTE (%) 0.6 % (0.0-0.7); LYMPHOCYTE (%) 34.5 % (15-42); MCH 31.5 PG (29.0-34.0); MCHC 34.3 G/DL (30.0-36.0); MCV 91.9 FL (83-99); MONOCYTE COUNT 1.2 K/uL (0-0.8); NEUTROPHIL (%) 56.8 % (45-76); NEUTROPHIL COUNT 9.9 K/uL (1.8-6.4); PLATELET COUNT 365 K/uL (156-360); RBC DIS.WIDTH-CV 14.4 % (11.8-14.6); RBC DIS.WIDTH-SD 48.4 % (39-53); RED BLOOD COUNT 4.19 M/uL (3.80-5.20); WHITE BLOOD COUNT 17.4 K/uL (4.1-10.2)
[2018-03-21 21:05] LABS: CHLORIDE 108 mEq/L (99-109); POTASSIUM 3.4 mEq/L (3.7-5.4); SODIUM 140 mEq/L (136-147)
[2018-03-21 21:08] LABS: GLUCOSE 203 mg/dL (70-99)
[2018-03-21 21:10] LABS: TOTAL BILIRUBIN 0.9 mg/dL (0.0-1.0)
[2018-03-21 21:11] LABS: ALKALINE PHOSPHATASE 107 IU/L (3-129); CREATININE 1.1 mg/dL (0.6-1.3); GFR ESTIMATE (CALCULATED) 56 mL/min/
[2018-03-21 21:13] LABS: AST (GOT) 15 IU/L (2-34); UREA NITROGEN (BUN) 12 mg/dL (9-23)
[2018-03-21 21:14] LABS: ALT (GPT) 15 IU/L (3-49)
[2018-03-21 21:17] LABS: TROP-I INTERPRETATION NEGATIVE; TROPONIN-I < 0.01 ng/mL (0.0-0.30)
[2018-03-21 21:20] LABS: QUANTITATIVE HCG < 4.0 MIU/ML
[2018-03-21] MEDS ORDERED: IBUPROFEN800 MG PO (22:40)
[2018-03-21] MEDS ORDERED: NEURONTIN100 MG PO (22:41)
[2018-03-21 23:42] LABS: COMMENTS - BLOOD GASES C+; SITE LR
[2018-03-21 23:43] LABS: BASE EXCESS 23.2 mEq/L (-3 to +3); BICARBONATE 19.3 mEq/L (22-26); CARBOXY HGB 1.7 % (0-5); DEVICE NC; METHEMOGLOBIN 1.1 % (0-1.5); O2 FLOW 3 L/MIN; PCO2 43 mm Hg (35-45); PO2 37 mm Hg (80-100); pH 7.34 (7.35-7.45)
[2018-03-21 23:56] LABS: CARBOXY HGB 1.7 % (0-5); COMMENTS - BLOOD GASES C+; DEVICE NC; O2 FLOW 3 L/MIN; PCO2 35 mm Hg (35-45); PO2 94 mm Hg (80-100); SITE RR; pH 7.39 (7.35-7.45)
[2018-03-21 23:57] LABS: BASE EXCESS -3.2 mEq/L (-3 to +3); BICARBONATE 21.2 mEq/L (22-26)
[2018-03-22] VITALS (18 sets, daily range): BP systolic 117–169; BP diastolic 75–109
[2018-03-22 05:31] LABS: HEMATOCRIT 37.3 % (36.0-46.0); HEMOGLOBIN 12.1 G/DL (11.9-15.5); MCH 30.5 PG (29.0-34.0); MCHC 32.4 G/DL (30.0-36.0); PLATELET COUNT 335 K/uL (156-360); RBC DIS.WIDTH-CV 14.3 % (11.8-14.6); RBC DIS.WIDTH-SD 49.6 % (39-53); RED BLOOD COUNT 3.97 M/uL (3.80-5.20)
[2018-03-22 05:50] LABS: CHLORIDE 102 MEQ/L (99-109); CREATININE 1.1 MG/DL (0.6-1.3); GFR ESTIMATE (CALCULATED) 56 mL/min/; GLUCOSE 362 mg/dL (70-99); POTASSIUM 3.4 MEQ/L (3.7-5.4); SODIUM 137 MEQ/L (136-147); UREA NITROGEN (BUN) 13 mg/dL (9-23)
[2018-03-23 00:30] VITALS: BP 111/59
[2018-03-23 03:40] VITALS: BP 125/58
[2018-03-23 06:58] VITALS: BP 101/55
[2018-03-23 09:43] LABS: HEMATOCRIT 34.5 % (36.0-46.0); HEMOGLOBIN 11.4 G/DL (11.9-15.5); MCH 31.4 PG (29.0-34.0); PLATELET COUNT 320 K/uL (156-360); RBC DIS.WIDTH-CV 14.8 % (11.8-14.6); RED BLOOD COUNT 3.63 M/uL (3.80-5.20)
[2018-03-23 10:06] LABS: CHLORIDE 106 MEQ/L (99-109); CREATININE 0.9 MG/DL (0.6-1.3); GFR ESTIMATE (CALCULATED) > 59 mL/min/; GLUCOSE 295 mg/dL (70-99); POTASSIUM 3.9 MEQ/L (3.7-5.4); SODIUM 139 MEQ/L (136-147); UREA NITROGEN (BUN) 11 mg/dL (9-23)
[2018-03-23 11:17] VITALS: BP 131/67
[2018-03-23 15:17] VITALS: BP 125/69
[2018-03-23 21:45] VITALS: BP 122/58
[2018-03-24] VITALS (7 sets, daily range): BP systolic 95–134; BP diastolic 49–75
[2018-03-24 05:31] LABS: BASOPHIL (%) 0 % (0-1); EOSINOPHIL (%) 0 % (0-5); HEMATOCRIT 33.4 % (36.0-46.0); HEMOGLOBIN 10.8 G/DL (11.9-15.5); IMMATURE GRANULOCYTE (%) 0.7 % (0.0-0.7); LYMPHOCYTE (%) 9.2 % (15-42); LYMPHOCYTE COUNT 1.9 K/uL (1.0-2.8); MCH 31.1 PG (29.0-34.0); MCHC 32.3 G/DL (30.0-36.0); MCV 96.3 FL (83-99); MONOCYTE (%) 5.6 % (3-12); MONOCYTE COUNT 1.2 K/uL (0-0.8); NEUTROPHIL (%) 84.5 % (45-76); NEUTROPHIL COUNT 17.4 K/uL (1.8-6.4); PLATELET COUNT 287 K/uL (156-360); RBC DIS.WIDTH-CV 14.9 % (11.8-14.6); RBC DIS.WIDTH-SD 53.2 % (39-53); RED BLOOD COUNT 3.47 M/uL (3.80-5.20); WHITE BLOOD COUNT 20.6 K/uL (4.1-10.2)
[2018-03-24 05:49] LABS: ALBUMIN 3.4 G/DL (3.2-4.8); ALKALINE PHOSPHATASE 60 IU/L (3-129); ALT (GPT) 10 IU/L (3-49); AST (GOT) 8 IU/L (2-34); CHLORIDE 106 MEQ/L (99-109); CREATININE 0.8 MG/DL (0.6-1.3); GFR ESTIMATE (CALCULATED) > 59 mL/min/; GLUCOSE 163 mg/dL (70-99); POTASSIUM 4.5 MEQ/L (3.7-5.4); SODIUM 139 MEQ/L (136-147); TOTAL BILIRUBIN 0.4 MG/DL (0.0-1.0); TOTAL PROTEIN 5.2 G/DL (6.4-8.3); UREA NITROGEN (BUN) 15 mg/dL (9-23)
[2018-03-25 03:30] VITALS: BP 119/59
[2018-03-25 07:45] VITALS: BP 131/65
[2018-03-25 10:00] LABS: HEMOGLOBIN A1c (GLYCOHEMOGLOB) 5.6 % (Below 5.7)
[2018-03-25] MEDS ORDERED: CEFTIN500 MG PO (11:14)
[2018-03-25] MEDS ORDERED: PREDNISONE10 MG PO (11:14)
[2018-03-25] MEDS ORDERED: PREDNISONE20 MG PO (11:14)
[2018-03-25 12:15] VITALS: BP 133/74
== END 2018-03-25 13:05 | disposition home or self-care (01) | DRG 202 ==
LOC: EME 20:29 → EDOF 03-22 00:43 → 4WEST 03-22 00:43 → 4EAST 03-22 00:43 → ENRESERV 03-22 00:44 → 2EAST 03-22 02:04 → ENRESERV 03-22 03:14 → 4WEST 03-22 03:14 → ENRESERV 03-22 20:07 → 4EAST 03-22 21:16 → ENPENDDIS 03-25 → 4EAST 03-25 13:05
PROVIDERS: Emergency Medicine; Hospitalist; Internal Medicine
PROC: 5A09357 Assistance with Respiratory Ventilation, Less than 24 Consecutive Hours, Continuous Positive Airway Pressure (ICD-10-PCS; principal; 2018-03-21)
DX: J45.41 Moderate persistent asthma with (acute) exacerbation (principal); J20.9 Acute bronchitis, unspecified; E87.6 Hypokalemia; R06.03 Acute respiratory distress; R73.9 Hyperglycemia, unspecified; I10 Essential (primary) hypertension; F41.9 Anxiety disorder, unspecified; G89.4 Chronic pain syndrome; H54.8 Legal blindness, as defined in USA; K21.9 Gastro-esophageal reflux disease without esophagitis; J38.3 Other diseases of vocal cords; K58.9 Irritable bowel syndrome, unspecified; E66.01 Morbid (severe) obesity due to excess calories; Z68.41 Body mass index [BMI] 40.0-44.9, adult; Z87.442 Personal history of urinary calculi
CPT/HCPCS: 36600; 71045; 80048; 80053; 82803; 82948; 83036; 83735; 84484; 84702; 85025; 85027; 85379; 87641; 94002; 94640; 94640 76; 94644; 94760; 94799; 99202; 99281; 99285; J0171; J0295; J1650; J1815; J2405; J2930; J3105; J3475; J3480; J7050; J7512

== ENCOUNTER 2018-05-17 01:28 | Inpatient (IN) | payer OTHER ==
[~2018-05-17] VITALS: Ht 170.2 cm; Wt 131.1 kg
[~2018-05-17 01:28] MED LIST changes: +NEURONTIN100 MG PO
[2018-05-17 02:03] LABS: BASOPHIL (%) 0.3 % (0-1); EOSINOPHIL COUNT 0.1 K/uL (0-0.3); HEMATOCRIT 39.6 % (36.0-46.0); HEMOGLOBIN 13.3 G/DL (11.9-15.5); IMMATURE GRANULOCYTE (%) 0.4 % (0.0-0.7); LYMPHOCYTE (%) 39.5 % (15-42); LYMPHOCYTE COUNT 4.7 K/uL (1.0-2.8); MCH 30.9 PG (29.0-34.0); MCHC 33.6 G/DL (30.0-36.0); MCV 92.1 FL (83-99); MONOCYTE COUNT 0.7 K/uL (0-0.8); NEUTROPHIL (%) 52.8 % (45-76); NEUTROPHIL COUNT 6.2 K/uL (1.8-6.4); PLATELET COUNT 285 K/uL (156-360); RBC DIS.WIDTH-CV 13.2 % (11.8-14.6); RBC DIS.WIDTH-SD 44.8 % (39-53); WHITE BLOOD COUNT 11.8 K/uL (4.1-10.2)
[2018-05-17 02:17] LABS: CHLORIDE 108 mEq/L (99-109); POTASSIUM 3.6 mEq/L (3.7-5.4); SODIUM 142 mEq/L (136-147)
[2018-05-17 02:19] LABS: GLUCOSE 122 mg/dL (70-99)
[2018-05-17 02:23] LABS: GFR ESTIMATE (CALCULATED) > 59 mL/min/
[2018-05-17 02:24] LABS: UREA NITROGEN (BUN) 11 mg/dL (9-23)
[2018-05-17 02:26] LABS: TROP-I INTERPRETATION NEGATIVE; TROPONIN-I < 0.01 ng/mL (0.0-0.30)
[2018-05-17 07:52] VITALS: BP 126/63
[2018-05-17] MEDS ORDERED: ZANAFLEX2 MG PO (07:52)
[2018-05-17] MEDS ORDERED: ATACAND4 MG PO (07:55)
[2018-05-17] MEDS ORDERED: METOCLOPRAMIDE H5 MG PO (07:59)
[2018-05-17] MEDS ORDERED: VIIBRYD20 MG PO (08:00)
[2018-05-17] MEDS ORDERED: METOPROLOL TART25 MG PO (09:40)
[2018-05-17 11:43] VITALS: BP 123/65
[2018-05-17 19:01] VITALS: BP 141/83
[2018-05-17 23:00] VITALS: BP 131/63
[2018-05-18 03:45] VITALS: BP 136/74
[2018-05-18 05:54] LABS: HEMATOCRIT 41.5 % (36.0-46.0); HEMOGLOBIN 13.8 G/DL (11.9-15.5); MCH 30.7 PG (29.0-34.0); MCHC 33.3 G/DL (30.0-36.0); MCV 92.4 FL (83-99); RBC DIS.WIDTH-CV 13.4 % (11.8-14.6); RBC DIS.WIDTH-SD 45.7 % (39-53); RED BLOOD COUNT 4.49 M/uL (3.80-5.20); WHITE BLOOD COUNT 25.2 K/uL (4.1-10.2)
[2018-05-18 05:59] LABS: PLATELET COUNT 411 K/uL (156-360)
[2018-05-18 06:19] LABS: CHLORIDE 105 MEQ/L (99-109); GFR ESTIMATE (CALCULATED) > 59 mL/min/; GLUCOSE 178 mg/dL (70-99); POTASSIUM 4.3 MEQ/L (3.7-5.4); SODIUM 141 MEQ/L (136-147); UREA NITROGEN (BUN) 14 mg/dL (9-23)
[2018-05-18 07:28] VITALS: BP 132/76
[2018-05-18] MEDS ORDERED: DELTASONE20 M1 PO (11:04)
== END 2018-05-18 11:42 | disposition home or self-care (01) | DRG 202 ==
LOC: EME → EDBD 01:28 → EDOF 05:46 → 5SOUTH 05:46 → ENRESERV 05:48 → 5SOUTH 07:11 → ENPENDDIS 05-18 11:37 → 5SOUTH 05-18 11:42
PROVIDERS: Emergency Medicine; Family Medicine; Hospitalist
DX: J20.9 Acute bronchitis, unspecified (principal); J45.41 Moderate persistent asthma with (acute) exacerbation; K21.9 Gastro-esophageal reflux disease without esophagitis; I50.9 Heart failure, unspecified; I11.0 Hypertensive heart disease with heart failure; G43.909 Migraine, unspecified, not intractable, without status migrainosus; F41.9 Anxiety disorder, unspecified; J38.3 Other diseases of vocal cords
CPT/HCPCS: 71045; 80048; 82948; 83880; 84484; 85025; 85027; 93005; 94002; 94640; 94644; 94760; 94799; 99281; 99285; J1650; J1815; J2930; J3475

== ENCOUNTER 2018-05-25 16:11 | Emergency (ER) | payer OTHER ==
[~2018-05-25] VITALS: Ht 170.2 cm; Wt 111.6 kg
[~2018-05-25 16:11] MED LIST changes: +ATACAND4 MG PO; +METOCLOPRAMIDE H5 MG PO; +VIIBRYD20 MG PO
[2018-05-25 16:41] LABS: BASOPHIL (%) 0.3 % (0-1); BASOPHIL COUNT 0.1 K/uL (0-0.1); EOSINOPHIL (%) 1.3 % (0-5); EOSINOPHIL COUNT 0.2 K/uL (0-0.3); HEMATOCRIT 41.2 % (36.0-46.0); HEMOGLOBIN 13.7 G/DL (11.9-15.5); IMMATURE GRANULOCYTE (%) 0.9 % (0.0-0.7); LYMPHOCYTE (%) 33.9 % (15-42); LYMPHOCYTE COUNT 6.3 K/uL (1.0-2.8); MCH 30.5 PG (29.0-34.0); MCHC 33.3 G/DL (30.0-36.0); MCV 91.8 FL (83-99); MONOCYTE COUNT 1.3 K/uL (0-0.8); NEUTROPHIL (%) 56.6 % (45-76); NEUTROPHIL COUNT 10.5 K/uL (1.8-6.4); PLATELET COUNT 373 K/uL (156-360); RBC DIS.WIDTH-CV 13.6 % (11.8-14.6); RBC DIS.WIDTH-SD 45.9 % (39-53); RED BLOOD COUNT 4.49 M/uL (3.80-5.20); WHITE BLOOD COUNT 18.5 K/uL (4.1-10.2)
[2018-05-25 16:47] LABS: INTER. NORMALIZED RATIO 0.9
[2018-05-25 16:50] LABS: CHLORIDE 107 mEq/L (99-109); POTASSIUM 4.2 mEq/L (3.7-5.4); PTT 29.3 SEC (25-37); SODIUM 140 mEq/L (136-147)
[2018-05-25 16:52] LABS: GLUCOSE 137 mg/dL (70-99)
[2018-05-25 16:56] LABS: CREATININE 1.2 mg/dL (0.6-1.3); GFR ESTIMATE (CALCULATED) 51 mL/min/
[2018-05-25 16:57] LABS: UREA NITROGEN (BUN) 14 mg/dL (9-23)
[2018-05-25 17:04] LABS: TROP-I INTERPRETATION NEGATIVE; TROPONIN-I < 0.01 ng/mL (0.0-0.30)
[2018-05-25 21:19] LABS: TROP-I INTERPRETATION NEGATIVE; TROPONIN-I < 0.01 ng/mL (0.0-0.30)
[2018-05-25] MEDS ORDERED: PROVENTIL HFA6.7 GM IH (23:48)
[2018-05-26 00:13] VITALS: BP 122/84
== END 2018-05-26 00:29 | disposition home or self-care (01) ==
LOC: EME 16:11
PROVIDERS: Emergency Medicine
DX: J45.901 Unspecified asthma with (acute) exacerbation (principal); J44.9 Chronic obstructive pulmonary disease, unspecified; I11.0 Hypertensive heart disease with heart failure; I50.9 Heart failure, unspecified; K21.9 Gastro-esophageal reflux disease without esophagitis; R73.03 Prediabetes; F41.9 Anxiety disorder, unspecified; Z87.442 Personal history of urinary calculi; Z90.49 Acquired absence of other specified parts of digestive tract; Z91.041 Radiographic dye allergy status; Z88.1 Allergy status to other antibiotic agents; Z88.8 Allergy status to other drugs, medicaments and biological substances
CPT/HCPCS: 71045; 80048; 83880; 84484; 85025; 85610; 85730; 93005; 94002; 94644; 99281; 99285; J1100; J3475